=== PATIENT | female | born 1950 | race Caucasian/White ===

== ENCOUNTER → 2019-06-15 | Outpatient (CLI) | payer MEDICARE ==
--- NOTE | 2019-06-15 15:26 | MR ---
EXAMINATION TYPE: MR shoulder RT wo con DATE OF EXAM: 06/15/2019 COMPARISON: Ultrasound 06/01/2019 HISTORY: Rt shoulder pain x 2 mos, no trauma TECHNIQUE: Multiplanar, multisequence imaging of the right shoulder is performed without contrast. FINDINGS: Rotator Cuff: Rotator cuff shows some abnormal increased signal at the insertion of the infraspinatus tendon anteriorly suggestive of a partial thickness tear. Increased signal within the tendon is comp atible with tendinosis. Acromioclavicular Joint: Arthropathy causes some mass effect on the musculotendinous junction of supr aspinatus. Glenohumeral Joint: Intact Labrum: Superior labrum shows an irregular appearance, some abnormal increased internal signal. There is some fraying suspected. Biceps Tendon: The long head of biceps is in normal location within bicipital groove. Bone marrow signal: 9 mm T2 hyperintensity in the humeral head shows non-aggressive appearance and th ere may be a geode or intraosseous ganglion just deep to the bicipital groove, there are pseudocysts in the humeral head. Other: No additional significant abnormality is appreciated. IMPRESSION: Partial tear rotator cuff, there is likely fraying of the superior labrum.
== END | disposition home or self-care (01) ==
LOC: RADMRIMAIN 10:25
PROVIDERS: ATTEND Orthopaedic Surgery
DX: M25.511 Pain in right shoulder (principal)

== ENCOUNTER → 2019-07-15 | Outpatient (CLI) | payer MEDICARE ==
[2019-07-15 09:49] LABS: Basophils # (A) 0.1 k/uL (0-0.2); Basophils % (A) 1 %; Eosinophils # (A) 0.3 k/uL (0-0.7); Eosinophils % (A) 5 %; HCT 41.7 % (34.0-46.0); HGB 13.8 gm/dL (11.4-16.0); Lymphocytes # (A) 2.1 k/uL (1.0-4.8); Lymphocytes % (A) 38 %; MCH 32.4 pg (25.0-35.0); MCHC 33.2 g/dL (31.0-37.0); MCV 97.4 fL (80.0-100.0); Mean Platelet Volume 6.1; Monocytes # (A) 0.3 k/uL (0-1.0); Monocytes % (A) 6 %; Neutrophils # (A) 2.5 k/uL (1.3-7.7); Neutrophils % (A) 46 %; Platelet Count 273 k/uL (150-450); RBC 4.28 m/uL (3.80-5.40); RDW 11.7 % (11.5-15.5); WBC 5.4 k/uL (3.8-10.6)
[2019-07-15 10:06] LABS: Potassium 4.7 mmol/L (3.5-5.1)
== END | disposition home or self-care (01) ==
LOC: LABPAT 08:59
PROVIDERS: ATTEND Orthopaedic Surgery
DX: Z01.812 Encounter for preprocedural laboratory examination (principal); Z01.818 Encounter for other preprocedural examination; M75.41 Impingement syndrome of right shoulder
CPT/HCPCS: 36415; 80051; 85025; 93005

== ENCOUNTER 2019-07-28 08:37 | Day surgery (SDC) | payer MEDICARE ==
[2019-07-27 08:38] VITALS: BMI 32.2
--- NOTE | 2019-07-27 14:04 | HP ---
HISTORY AND PHYSICAL DATE OF SERVICE: 07/28/2019 Brigette Harp is a 69-year-old patient seen with right shoulder pain. We discussed options for treatment. She elected to proceed with arthroscopy. Consent was obtained. PAST MEDICAL HISTORY: Hypertension. PAST SURGICAL HISTORY: Hysterectomy, left knee arthroscopy, left total knee arthroplasty. MEDICATIONS: 1. Metoprolol. 2. Advil. 3. Scotrun. ALLERGIES: None. SOCIAL HISTORY: Denies tobacco use. PHYSICAL EXAMINATION: Evaluation of the right shoulder flexion 140, abduction 90, external rotation 30 with pain and weakness. Tenderness along the anterolateral acromion rotator cuff insertion site. Impingement positive at 90. Drop-arm sign is positive. Distal neurovascular exam is intact. RADIOGRAPHS: Right shoulder type 2 anterior acromion acromioclavicular joint osteoarthritis. Right shoulder MRI rule revealed rotator cuff tear and acromioclavicular joint osteoarthritis. IMPRESSION: 1. Right shoulder impingement with rotator cuff tear. 2. Right shoulder acromioclavicular joint osteoarthritis. 3. Hypertension. PLAN: Right shoulder arthroscopy with subacromial decompression, arthroscopic rotator cuff repair, arthroscopic Nitin procedure and debridement. MMODL / IJN: [id number] /
[~2019-07-28 08:37] MED LIST: DEXAMETHASONE SOD PHOSPHATE 10 MG/ML 1 ML VIAL IV ONE; HYDROmorphone 0.5 MG/0.5 ML SYRINGE IVP PRN; LACTATED RINGERS 1,000 ML IV SCH; MIDAZOLAM 2 MG/2 ML VIAL IV PRN; ONDANSETRON 4 MG/2 ML VIAL IVP ONE
[2019-07-28 09:22] LABS: Glucose,Whole Blood 68 mg/dL (75-99)
[2019-07-28] MEDS ORDERED: fentaNYL (PF) 50 MCG/ML 2 ML AMP IV ONE (09:26)
[2019-07-28] MEDS ORDERED: LIDOCAINE 1% 20 ML VIAL (10MG/ML) FOR IV START INTRADERMA ONE (09:29)
--- NOTE | 2019-07-28 09:50 | P.ANPRN ---
Procedure Note - Anesthesia - Nerve Block Performed Right Interscalene Single Time Out Performed: Yes Date of Procedure: 07/28/19 Procedure Start Time: : Procedure Stop Time: :32 Location of Patient: PreOp Indication: Acute Post-Operative Pain, Requested by Surgeon Specifically requested for management of pain by DrVlad: Sudeep Aparicio Sedation Type: Sedate with meaningful contact maintained Preparation: Sterile Prep Position: Supine Catheter: None Needle Types: Pajunk Needle Gauge: 21 Ultrasound used to visualize needle placement: Yes Ultrasound used to observe medication spread: Yes Injectate: 0.5% Ropivacaine (see comment for volume) (20 cc + decadron 4 mg) Blood Aspirated: No Pain Paresthesia on Injection Noted: No Resistance on Injection: Normal Image Stored and Saved: Yes Events: Uneventful and Well Tolerated
[2019-07-28] MEDS ORDERED: ROPIVACAINE 5 MG/ML 30 ML VIAL ONE (10:01)
[2019-07-28] MEDS ORDERED: LIDOCAINE 1% INJ 10MG/ML (20 ML MDV) ONE (10:01)
[2019-07-28] MEDS ORDERED: DEXAMETHASONE SOD PHOSPHATE 4 MG/ML 1 ML VIAL ONE (10:01)
[2019-07-28] MEDS ORDERED: MIDAZOLAM 2 MG/2 ML VIAL ONE (10:01)
[2019-07-28] MEDS ORDERED: PROPOFOL 10 MG/ML 20 ML VIAL IV ONE (10:01)
[2019-07-28] MEDS ORDERED: SUCCINYLCHOLINE CHLORIDE 100 MG/5 ML SYR IV ONE (10:01)
[2019-07-28] MEDS ORDERED: LACTATED RINGERS 1,000 ML IV ONE (11:13)
[2019-07-28 11:33] VITALS: TEMP 97.2
--- NOTE | 2019-07-28 11:34 | P.OP ---
Date of Procedure: 07/28/19 Preoperative Diagnosis: Right shoulder impingement Postoperative Diagnosis: 1. Right shoulder rotator cuff tear 2. Right shoulder impingement 3. Right shoulder acromioclavicular joint osteoarthritis 4. Right shoulder partial long head biceps tendon tear Procedure(s) Performed: 1. Right shoulder arthroscopic rotator cuff repair 2. Right shoulder arthroscopic subacromial decompression 3. Right shoulder arthroscopic Nitin procedure 4. Right shoulder arthroscopic biceps tenotomy Implants: 15.5 Arthrex a lock anchor Anesthesia: GETA, regional (interscalene block) Surgeon: Sudeep Aparicio Hand Heel Seat Fitter #1: Dwayne Rodney Estimated Blood Loss (ml): 12 Pathology: none sent Condition: stable Disposition: PACU Indications for Procedure: 69-year-old patient seen with progressive right shoulder pain. After treatment options were discussed, she elected to proceed with arthroscopy. Operative Findings: see description of procedure Description of Procedure: Patient underwent an interscalene block by department of anesthesia for postoperative pain management. The patient was then taken to the operative suite. The patient underwent a general anesthetic by the department of anesthesia. The patient was placed into a lateral position and secured. There was appropriate padding of the bony prominence. Right shoulder was then prepped and draped in normal sterile orthopedic fashion. We placed the extremity in 10 pounds of longitudinal traction. A posterior incision was now made for a posterior working portal site. The trocar and cannula were inserted into the glenohumeral joint. Arthroscopy was initiated. Spinal needle was now inserted anteriorly, to ascertain the anterior working portal site. An incision was now made in that area, a trocar was inserted followed by a probe. There was hyperemia and partial tearing long head biceps tendon. The labrum was intact. There were grade 2 chondromalacia changes of the humeral head and glenoid fossa. There were no osteochondral tears present. I performed arthroscopic biceps tenotomy. The residual labrum was stable. Instruments now removed from glenohumeral joint. Utilizing the posterior working portal site, the trocar and cannula were inserted into the subacromial space. Arthroscopy initiated. I made an incision 2 fingerbreadths lateral to the acromion. I introduced my trocar followed by my A rthroCare ablator. I now began ablating thick subacromial bursal tissue, which exposed the undersurface of the anterior acromion. There was diminished subacromial space. There was a very prominent anterior acromion. A motorized bur was introduced and a subacromial decompression was performed. I also excised some osteophytes off the inferior aspect of the distal clavicle. The AC joint was visualized and noted to be fairly arthritic. The motorized bur was introduced in the anterior portal site and a Nitin procedure was performed without difficulty, decompressing the AC joint nicely. I turned my attention to the rotator cuff. There was a 1-1.5 cm rotator cuff tear. I debrided the margins getting down to stable tendon tissue. I introduced my motorized bur and abraded the footprint area, getting some petechial bleeding. I passed 2 everted mattress sutures through good bites of rotator cuff tendon with the assistance of Sg STUART. I now punched a wall in the area of the footprint for insertion of her anchor. I now chose a 5.5 Arthrex swivel lock anchor. The suture limbs were passed through the eyelet. I introduced the eyelet into the pre-punch hole. Sg STUART tension the sutures and the aman the anchor. All residual suture limbs were now clipped. We had good compression of the tendon along the entire footprint. I injected 1 mL Renyte intra-articular. Instruments now removed from the portal sites. All portal sites were approximated with nylon suture. Sterile dressings were applied followed by a shoulder immobilizer. Dwayne STUART assisted in this complex case. The patient was awakened, transferred to a bed, and taken to recovery in stable condition.
[2019-07-28 11:58] VITALS: RESP 16
[2019-07-28 12:57] VITALS: BP 143/94; PULSE 90
== END 2019-07-28 13:10 | disposition home or self-care (01) ==
LOC: OR 08:37
PROVIDERS: ATTEND Orthopaedic Surgery
DX: M75.41 Impingement syndrome of right shoulder (principal); M75.101 Unspecified rotator cuff tear or rupture of right shoulder, not specified as traumatic; M19.011 Primary osteoarthritis, right shoulder; M25.811 Other specified joint disorders, right shoulder; I10 Essential (primary) hypertension; Z79.1 Long term (current) use of non-steroidal anti-inflammatories (NSAID); Z79.899 Other long term (current) drug therapy; Z96.652 Presence of left artificial knee joint; J45.909 Unspecified asthma, uncomplicated
CPT/HCPCS: 64415; 76942; 29827; 29828; 29826; 29824; C1713; Q4212; J2250; J1100 ×2; J0690; J2405; J2001; J3010; J2795; J0330; J2704

== ENCOUNTER → 2021-01-18 | Outpatient (CLI) | payer MEDICARE ==
--- NOTE | 2021-01-18 13:35 | US ---
EXAMINATION TYPE: US venous doppler duplex LE RT DATE OF EXAM: 01/18/2021 1:10 PM COMPARISON: NONE CLINICAL HISTORY: R22.41 Localized swelling, mass and lump, right lo. Pain at varicose veins right m edial calf. SIDE PERFORMED: Right TECHNIQUE: The lower extremity deep venous system is examined utilizing real time linear array sonog abby with graded compression, doppler sonography and color-flow sonography. VESSELS IMAGED: Common Femoral Vein Deep Femoral Vein Greater Saphenous Vein * (GSV) Femoral Vein Popliteal Vein Small Saphenous Vein * Proximal Calf Veins (* superficial vessels) Right Leg: Thick blood noted within GSV at Groin and below knee at pain as Rouleaux Effect is noted here, but superficial veins compress. Right leg is negative for DVT. IMPRESSION: 1. Right lower extremity ultrasound negative for deep venous thrombosis. 2. 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
== END | disposition home or self-care (01) ==
LOC: RADUSWWP 12:43
PROVIDERS: ATTEND Family Medicine
DX: R22.41 Localized swelling, mass and lump, right lower limb (principal)

== ENCOUNTER → 2021-04-25 | Outpatient (CLI) | payer MEDICARE ==
--- NOTE | 2021-04-30 09:03 | MM ---
Reason for exam: additional evaluation requested from prior study. Last mammogram was performed 3 years and 1 month ago. History: Patient history of other cancer. Benign excisional biopsy of the right breast. Took estrogen for 4 years. Physical Findings: Nurse did not find any significant physical abnormalities on exam. MG 3D Diag Mammo W/Cad QUIN Bilateral CC and MLO view(s) were taken. XCCL view(s) were taken of the left breast. Prior study comparison: April 23, 2018, left breast ultrasound, performed at [facility]. April 03, 2018, mammogram, performed at [facility]. September 29, 2015, mammogram, performed at [facility]. There are scattered fibroglandular densities. Focal asymmetry upper outer right breast 10cm from nipple. This finding is changed when compared with previous exams. These results were verbally communicated with the patient and result sheet given to the patient on 04/25/21. ASSESSMENT: Incomplete: need additional imaging evaluation, BI-RAD 0 RECOMMENDATION: Special view mammogram and ultrasound of the right breast. [facility] will attempt to contact patient to return for supplemental views and ultrasound.
== END | disposition home or self-care (01) ==
LOC: RADMAMWWP 09:39
PROVIDERS: ATTEND Family Medicine
DX: R92.8 Other abnormal and inconclusive findings on diagnostic imaging of breast (principal)
CPT/HCPCS: 77066; G0279; 77062

== ENCOUNTER → 2021-05-09 | Outpatient (CLI) | payer MEDICARE ==
--- NOTE | 2021-05-10 10:44 | MM ---
Reason for exam: additional evaluation requested from abnormal screening. Last mammogram was performed less than 1 month ago. History: Patient is postmenopausal and has history of other cancer at age 71. Benign excisional biopsy of the right breast. Took estrogen for 4 years. Physical Findings: Nurse did not find any significant physical abnormalities on exam. MG 3D Follow Up No Charge RT Spot compression CC, spot compression MLO, and ML view(s) were taken of the right breast. Prior study comparison: April 25, 2021, bilateral MG 3d diag mammo w/cad QUIN. April 03, 2018, mammogram, performed at [facility]. Density upper outer quadrant zone C persists 12cm from nipple. These results were verbally communicated with the patient and result sheet given to the patient on 05/09/21. ASSESSMENT: Incomplete: need additional imaging evaluation, BI-RAD 0 RECOMMENDATION: Ultrasound of the right breast.
--- NOTE | 2021-05-10 10:46 | USB ---
Reason for exam: additional evaluation requested from abnormal screening. History: Patient is postmenopausal and has history of other cancer at age 71. Benign excisional biopsy of the right breast. Took estrogen for 4 years. US Breast Workup Limited RT Right limited breast ultrasound including focal area of concern, retroareolar and axilla demonstrates a 1.9 x 1.4cm irregular, hypoechoic lesion at 9 o'clock. These results were verbally communicated with the patient and result sheet given to the patient on 05/09/21. ASSESSMENT: Suspicious, BI-RAD 4 RECOMMENDATION: Ultrasound core biopsy of the right breast. Called Dr. Vasquez's office with mammographic findings and has scheduled an appointment for the patient for 05/10/21 at 12:[address] Beltran. Biopsy scheduled for 05/23/21 at 10:30. PRELIMINARY REPORT CALLED AND FAXED TO DR. BELTRAN ON 05/10/21.
== END | disposition home or self-care (01) ==
LOC: RADMAMWWP 13:28
PROVIDERS: ATTEND Family Medicine
DX: R92.8 Other abnormal and inconclusive findings on diagnostic imaging of breast (principal)

== ENCOUNTER → 2021-05-10 | Outpatient (CLI) | payer MEDICARE ==
[2021-05-10 12:57] VITALS: BP 139/88; PULSE 77; RESP 16; TEMP 98.3
--- NOTE | 2021-05-10 13:10 | P.GSHP ---
History of Present Illness H&P Date: 05/10/21 Chief Complaint: abnormal right breast ultrasound and mammogram Ashanti is a 71 -year-old white female who presents with an abnormal right breast mammogram. She had a bilateral mammogram performed on which revealed an area of asymmetry in the right breast in the upper outer quadrant region. She subsequently underwent a right breast ultrasound which confirmed the area of concern to be a 1.9 x 1.4 cm irregular lesion at 9:00. She also underwent a right breast diagnostic mammogram. No lesions of concern were noted in the left breast. She does not feel anything of concern in either breast. In the remote past approximately 30 years ago she had undergone a right breast biopsy needle localization excisional biopsy which was benign. 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 A PET scan was performed which revealed that the area of concern revealed an enhancing mass in the right posterior vulva which was approximately 3.4 x 2.7 cm in size. She is seeing Dr. Wei in [place] regarding this. She has a meeting with them today at approximately 1:45. She had seen Dr. Riojas he was out of [facility] in [place]. She has opted to follow through in [place] rather than with him. She does not have any history of any pain, trauma, or infection in either breast. Family history: brother: hairy cell leukemia, stage 4 lung cancer not a smoker sister: colon polyps maternal aunt: pancreatic cnacer paternal cousin: kidney cancer Hormonal History: menarche: 15 , breast fed: no, age at first : 22 menopause: hysterectomy in 1988 at about 39, took ovaries BCP: used for about 2 years hormones: premarin patches 5 years Surgical history: hysterectomy and BSO not for cancer/ endometriosis total left knee right shoulder rotater cuff surgery D&C's Medical History: vulvar cancer HTN pain in back/arthritis takes tramadole Social history: Smoke: none alcohol: occasional drugs: none - Constitutional Constitutional: Reports night sweats, Denies chills, Denies fever - EENT Eyes: denies blurred vision, denies pain Ears: bilateral: decreased hearing, deny: tinnitus Ears, nose, mouth and throat: Denies headache, Denies sore throat - Breasts Breasts: bilateral: as per HPI - Cardiovascular Cardiovascular: Denies chest pain, Denies shortness of breath - Respiratory Respiratory: Denies cough, Denies 7 - Gastrointestinal Gastrointestinal: Denies abdominal pain, Denies diarrhea, Denies nausea, Denies vomiting - Genitourinary (Female) Genitourinary: Reports as per HPI - Menstruation Comment: vulvar cancer Menstruation: Reports post hysterectomy - Musculoskeletal Comment: back pain - Integumentary Integumentary: Denies pruritus, Denies rash - Neurological Neurological: Denies numbness, Denies weakness - Psychiatric Psychiatric: Reports anxiety, Reports depression - Endocrine Endocrine: Denies fatigue, Denies weight change - Hematologic/Lymphatic Comment: none - Allergic/Immunologic Allergic/Immunologic: Reports seasonal allergies Medications and Allergies Home Medications Medication Instructions Recorded Confirmed Type Ibuprofen [Motrin] 200 - 400 mg PO Q6HR PRN 05/17/14 05/10/21 History Metoprolol Succinate [Toprol XL] 50 mg PO HS 05/17/14 05/10/21 History Acetaminophen Tab [Tylenol Tab] 1,000 mg PO Q6HR PRN 07/27/19 05/10/21 History Albuterol Inhaler (Mhu) [Ventolin 1 - 2 puff INHALATION RT-Q6H PRN 07/27/19 05/10/21 History Hfa Inhaler] Multivit-Min/Iron/Folic/Lutein 1 each PO DAILY 07/27/19 05/10/21 History [Centrum Silver Women Tablet] traMADol HCL [Ultram] 50 mg PO BID 05/10/21 05/10/21 History Allergies Allergy/AdvReac Type Severity Reaction Status Date / Time No Known Allergies Allergy Verified 07/28/19 09:07 Surgical - Exam BMI 31.6 - General well developed, well nourished, no distress - Eyes normal ocular movement - ENT no hearing loss, no congestion - Neck trachea midline - Respiratory normal respiratory effort, clear to auscultation - Cardiovascular Rhythm: regular Heart Sounds: normal: S1, S2 - Abdomen Abdomen: soft, non tender, no guarding, no rigid, no rebound - Integumentary normal turgor - Neurologic no disoriented, no combative - Musculoskeletal normal gait, normal posture - Psychiatric oriented to time, oriented to person, oriented to place, speech is normal, memory intact breast Exam: BRA: 42B inspection: grade 2/3 ptosois, well-healed scar right breast from prior biopsy palpation: right breast: Multi-positional exam no dominant masses or nodules of concern Right axilla: No adenopathy of concern Left breast: Multi-positional exam fibrocystic changes no dominant masses or nodules of concern Left axilla: No adenopathy of concern Results Mammogram and ultrasound reviewed with Dr. Meneses Assessment and Plan Assessment: Impression: 1. Abnormal right breast mammogram and ultrasound 2. Recent diagnosis of vulvar cancer 3. Hypertension 4. Anxiety/depression Plan: 1. Treatment of vulvar disease as per recommendation in [place] 2. Ultrasound core biopsy right breast Cc: Dr. Vasquez
== END | disposition home or self-care (01) ==
LOC: WWCWWP 11:49
PROVIDERS: ATTEND Surgery
DX: Z53.9 Procedure and treatment not carried out, unspecified reason (principal)

== ENCOUNTER → 2021-05-23 | Day surgery (SDC) | payer MEDICARE ==
[2021-05-23 09:47] VITALS: RESP 16
[2021-05-23 11:27] VITALS: BP 116/79; PULSE 57; TEMP 98.2
--- NOTE | 2021-05-24 10:16 | USB ---
EXAMINATION TYPE: US biopsy breast VAD RT DATE OF EXAM: 05/23/2021 CLINICAL HISTORY: R92.8 ABN MAMMO. TECHNIQUE: Ultrasound guided vaccuum assisted core biopsy of right breast. COMPARISON: 05/09/2021 FINDINGS: The ultrasound guided core biopsy procedure was explained to the patient. The risks, benef its, alternatives were discussed. An informed consent was then obtained. Timeout was performed. The patient was placed in supine positioning for imaging and for the procedure. The overlying skin w as prepped with betadine and sterilely draped in usual sterile fashion. Lidocaine 1% was used as ane sthetic into the skin and deeper breast tissue up to area of concern in the breast. A small skin zoe k was made with surgical scalpel. Under ultrasound guidance, a 12-gauge vacuum assisted biopsy device was used to obtain 5 core samples . A biopsy clip was left in lesion. Ribbon clip was placed. Good hemostasis was obtained with direct pressure. Discharge instructions were discussed with the concetta jon. The patient will follow up with the referring physician for results. Postprocedure mammogram: The patient was transferred to mammography for physician ordered post proced ure mammogram for clip placement verification. The clip is in the expected region of the biopsy. The patient tolerated the procedure well without any immediate complication. The patient was dischar ged to home in stable condition. IMPRESSION: 1. Successful ultrasound guided biopsy right breast. Recommendations: 1. Recommendations are pending pathology results.
== END ==
LOC: RADUSWWP 09:16
PROVIDERS: ATTEND Surgery
DX: C50.911 Malignant neoplasm of unspecified site of right female breast (principal)
CPT/HCPCS: 88305; 88342; 88341; 77065; 19083; A4648; J2001

== ENCOUNTER → 2021-06-01 | Outpatient (CLI) | payer MEDICARE ==
[2021-06-01 13:52] VITALS: BP 136/93; PULSE 77; RESP 18
--- NOTE | 2021-06-01 14:16 | P.PN ---
Subjective Progress Note Date: 06/01/21 Principal diagnosis: vulvar cancer; ? stage II; right breast invasive lobular carcinoma Ashanti is a 71-year-old white female status post ultrasound-guided core biopsy of the right breast on tenderness 1321. Pathology revealed invasive pleomorphic lobular carcinoma. The lesion was ER positive SC negative HER-2 negative G2. The size is approximately 1.9 cm. There is no clinical evidence of dominique or metastatic disease. This would be a stage I A lesion. If the resection reveals it to be larger than 2 cm then the stage would be IIA. Of importance is the fact that the patient is presently being treated for vulvar carcinoma. She is undergoing radiation therapy and is scheduled to start chemotherapy yuhaaviatam-based to potentiate the radiation therapy. This is going to be completed by July 09. I have called Dr. Virgen her medical oncologist secondary to the fact that the patient has a second primary. He believes that the and carefully follow the lesion in the breast. Objective - Vital Signs Vital signs: Vital Signs Temp Pulse 77 06/01/21 13:49 Resp 18 06/01/21 13:49 BP 136/93 06/01/21 13:49 Pulse Ox 100 06/01/21 13:49 Intake & Output 05/31/21 06/01/21 06/01/21 18:59 06:59 18:59 Weight 78.471 kg - Constitutional General appearance: Present: cooperative - EENT Eyes: Present: EOMI ENT: Present: hearing grossly normal - Neck Neck: Present: normal ROM - Respiratory Respiratory: bilateral: CTA - Cardiovascular Rhythm: regular Heart sounds: normal: S1, S2 - Gastrointestinal General gastrointestinal: Present: soft - Integumentary Integumentary: Present: normal turgor - Musculoskeletal Musculoskeletal: Present: gait normal - Psychiatric Psychiatric: Present: A&O x's 3, appropriate affect, intact judgment & insight - Additional findings Additional findings: Biopsy site right breast clean and dry no evidence of infection or hematoma Assessment and Plan Assessment: Impression: 1. Vulvar carcinoma presently being treated with radiation and patient is scheduled to start chemotherapy next week 2. Invasive lobular right breast carcinoma Plan: 1. I discussed the case with Dr. Virgen from medical oncology. He feels at this time it is important that the patient completed treatment for the vulvar carcinoma. She is scheduled to start a yuhaaviatam-based chemotherapy and he feels that we can monitor the lesion in the right breast at this time with ultrasound done every 3 weeks. Additionally he is recommended bilateral breast MRI 2. We will schedule right breast surgery for as soon as possible after completion of the treatment for the vulvar carcinoma. 3. presentation of case at tumor board 4. breast ultrasound in 3 weeks and follow up here 5. continue appointments with chemo and radiation oncology CC: Dr. Vasquez
== END | disposition home or self-care (01) ==
LOC: WWCWWP 13:32
PROVIDERS: ATTEND Surgery
DX: Z53.9 Procedure and treatment not carried out, unspecified reason (principal)

== ENCOUNTER → 2021-06-22 | Outpatient (CLI) | payer MEDICARE ==
--- NOTE | 2021-06-22 11:37 | USB ---
EXAMINATION TYPE: US breast limited RT DATE OF EXAM: 06/22/2021 COMPARISON: 05/23/2021, 05/09/2021, 04/25/2021 CLINICAL HISTORY: C50.411 RT BREAST CA. Findings: Right breast ultrasound was performed from 8-10 o'clock. The previously noted lesion is not seen on t his examination. IMPRESSION: The previously seen lesion is not seen on this examination. Diagnostic right mammogram is recommended . BI-RADS 0, incomplete.
--- NOTE | 2021-06-22 14:26 | MM ---
Reason for exam: additional evaluation requested from abnormal screening. Last mammogram was performed 1 month ago. History: Patient is postmenopausal, has history of breast cancer at age 71, and has history of other cancer at age 71. Malignant US biopsy breast VAD RT of the right breast, May 23, 2021. Benign excisional biopsy of the right breast. Took estrogen for 4 years. MG 3D Diag Mammo W/Cad RT CC, MLO, and XCCL view(s) were taken of the right breast. Prior study comparison: May 23, 2021, right breast MG diagnostic mammo RT wo CAD. May 09, 2021, right breast MG 3d follow up no charge RT. April 03, 2018, mammogram, performed at [facility]. There are scattered fibroglandular densities. The right upper outer quadrant posterior mass is decreased now measures 2.5 x 1.3 x 0.6cm, previously 3.1 x 1.5 x 0.9cm. Biopsy clip is present. These results were verbally communicated with the patient and result sheet given to the patient on 06/22/21. ASSESSMENT: Known biopsy proven malignancy, BI-RAD 6 RECOMMENDATION: Clinical management of the right breast. Manage patient on a clinical basis. MELISSAD
== END | disposition home or self-care (01) ==
LOC: RADUSWWP 09:12
PROVIDERS: ATTEND Surgery
DX: C50.411 Malignant neoplasm of upper-outer quadrant of right female breast (principal)
CPT/HCPCS: 77065; 76642; G0279; 77061

== ENCOUNTER → 2021-06-27 | Outpatient (CLI) | payer MEDICARE ==
--- NOTE | 2021-06-27 10:23 | US ---
EXAMINATION TYPE: US venous doppler duplex LE RT DATE OF EXAM: 06/27/2021 9:49 AM COMPARISON: 01/18/2021 CLINICAL HISTORY: 71-year-old female R22.41 Localized swelling, mass and lump, RLE. Skin redness and pain along the Right Greater Saphenous Vein course for approximately 15 cm from above knee to mid jeanmarie f; symptoms x 1 day per patient; on radiation for ovarian and breast CA. SIDE PERFORMED: Right TECHNIQUE: The lower extremity deep venous system is examined utilizing real time linear array sonog abby with graded compression, doppler sonography and color-flow sonography. FINDINGS: VESSELS IMAGED: Common Femoral Vein Deep Femoral Vein Greater Saphenous Vein * Femoral Vein Popliteal Vein Small Saphenous Vein * Proximal Calf Veins (* superficial vessels) Right Leg: Negative for DVT; however, Rouleaux Effect is noted throughout right deep venous system. Right Greater Saphenous Vein Superficial thrombophlebitis is noted from above knee to mid calf for ap proximately 15cm long, as internal echoes are noted and non compressibility of vein is present. Tech findings called to Dr Ricardo's Office at exam's end. JJ IMPRESSION: 1. No evidence for DVT within the right lower extremity imaged from the groin to the upper calf. Styles michelle, there is Rouleaux effect/slow flow noted throughout. 2. However, the exam is positive for SVT involving a 15 cm long segment of the GSV extending from abo ve the knee to the mid calf.
== END | disposition home or self-care (01) ==
LOC: RADUSWWP 09:05
PROVIDERS: ATTEND Radiology Radiation Oncology
DX: C51.9 Malignant neoplasm of vulva, unspecified (principal); R22.41 Localized swelling, mass and lump, right lower limb

== ENCOUNTER → 2021-06-29 | Outpatient (CLI) | payer MEDICARE ==
[2021-06-29 12:35] VITALS: BP 126/85; PULSE 94; RESP 18; TEMP 97.7
--- NOTE | 2021-06-29 12:52 | P.PN ---
Progress Note - Text Progress Note Date: 06/29/21 The patient has come in today for results of the MRI of her breast. These were done at [facility] and we do not have the films or the results at this time. It has not been read yet. The patient did have a very depressed mammogram and ultrasound performed on [id number]. This revealed that the biopsy- proven cancer had decreased in size. It now measures 2.5 x 1.3 x 0.6 and previously measured 3.1 x 1.5 x 0.9 cm. The patient is presently receiving chemotherapy for a vulvar cancer. This appears to have some affect on the breast cancer as well. The patient will follow up here in two weeks. The patient is here with her sister who lives in [place] and will fly back for the patient's surgery. The patient wishes to wait for her surgery until mid August and it is presently scheduled for August 28. We have discussed moving the surgery sooner that the patient and her family would like her to stay at August 28.
== END | disposition home or self-care (01) ==
LOC: WWCWWP 12:20
PROVIDERS: ATTEND Surgery
DX: Z53.9 Procedure and treatment not carried out, unspecified reason (principal)

== ENCOUNTER → 2021-07-13 | Outpatient (CLI) | payer MEDICARE ==
--- NOTE | 2021-07-16 08:50 | PE ---
EXAMINATION TYPE: PET CT fusion skull to thigh DATE OF EXAM: 07/13/2021 COMPARISON: Outside PET/CT May 07, 2021 HISTORY: Biopsy-proven malignancy right breast in May. Recent abnormal bilateral breast MRI. TECHNIQUE: Following the intravenous administration of 8.49 mCi of F-18 FDG, whole body images are p erformed from the skull base to the midthigh. Images are reviewed on the computer in the coronal, ax ial, and sagittal planes. Reconstructed rotating images are created on independent workstation and r eviewed on the computer. A localization and attenuation correction CT is performed in conjunction w ith the PET scan. Blood glucose level was 103. SCAN: Initial Scan FINDINGS: SKULL BASE AND NECK: No areas of abnormal hypermetabolic uptake. CHEST, MEDIASTINUM, AND HILAR REGION: No areas of abnormal hypermetabolic uptake with particular atte ntion to bilateral breast and axillary regions. ABDOMEN AND PELVIS: Normal excretion. Nonspecific bowel uptake including near level of hepatic flexur e. Abnormal hypermetabolic uptake in the rectum and axial image 224, max SUV is 6.3. Abnormal hyperme tabolic uptake sigmoid colon left pelvis axial image 207 , max SUV is 5.63. Direct correlation advise d. No additional areas of abnormal hypermetabolic uptake. OSSEOUS STRUCTURES: Abnormal hypermetabolic uptake anterior right lower sixth and seventh ribs likely reflects healing fractures. One likely corresponds to recent breast MRI abnormal area of enhancement . No additional areas of abnormal hypermetabolic uptake. OTHER CT: Ascending aortic aneurysm up to 4.1 cm. A few distal colonic diverticula. Uterus surgically absent. IMPRESSION: 1. Known right breast neoplasm not well seen on PET/CT as is ametabolic. No hypermetabolic suspicious areas on PET/CT in either breast. Advise appropriate treatment and management of recent workup and M RI findings. 2. Nonspecific bowel uptake including rectum and sigmoid colon left pelvis, possibly follow-up does n ot been performed last 2 years to exclude colonic neoplasm advised. 3. Area of concern anterior right lower rib on MRI felt to reflect adjacent subacute or healing fract ures. No hypermetabolic osseous metastatic disease.
== END | disposition home or self-care (01) ==
LOC: RADPETMAIN 14:26
PROVIDERS: ATTEND Surgery
DX: C50.411 Malignant neoplasm of upper-outer quadrant of right female breast (principal)
CPT/HCPCS: 78815; A9552

== ENCOUNTER → 2021-07-23 | Outpatient (CLI) | payer MEDICARE ==
--- NOTE | 2021-07-23 10:10 | USB ---
Reason for exam: clinical finding. History: Patient is postmenopausal, has history of breast cancer at age 71, and has history of other cancer at age 71. Malignant US biopsy breast VAD RT of the right breast, May 23, 2021. Benign excisional biopsy of the right breast. Took estrogen for 4 years. Physical Findings: Nurse Summary: right breast 9 o'clock palpable 1 x 1.5cm, non-movable (nurse ts). US Breast LT Left complete breast ultrasound includes all four quadrants, the retroareolar region and axilla. Finding demonstrates a 0.4 x 0.3 x 0.3cm oval, hypoechoic lesion too small to characterize at 2 o'clock, 7cm from nipple, may correlate with MRI and a 0.7 x 0.5 x 1.0cm oval, solid node at 2 o'clock. These results were verbally communicated with the patient and result sheet given to the patient on 07/23/21. ASSESSMENT: Suspicious, BI-RAD 4 RECOMMENDATION: Ultrasound core biopsy of the left breast. Called office with mammographic findings and has scheduled an appointment for the patient for 07/27/21 at 9:[address] Beltran. Biopsy scheduled for 08/22/21 at 10:30. PRELIMINARY REPORT CALLED AND FAXED TO DR. BELTRAN ON 07/23/21.
== END | disposition home or self-care (01) ==
LOC: RADUSWWP 08:43
PROVIDERS: ATTEND Surgery
DX: Z08 Encounter for follow-up examination after completed treatment for malignant neoplasm (principal); Z85.3 Personal history of malignant neoplasm of breast

== ENCOUNTER → 2021-07-27 | Outpatient (CLI) | payer MEDICARE ==
[2021-07-27 09:38] VITALS: BP 114/71; PULSE 76; RESP 16; TEMP 97.9
--- NOTE | 2021-07-27 13:21 | P.PN ---
Subjective Progress Note Date: 07/27/21 Principal diagnosis: Impression invasive ductal carcinoma, questionable lesion in the left breast Ashanti is a 71 -year-old white female who presented with an abnormal right breast mammogram. She had a bilateral mammogram performed on which revealed an area of asymmetry in the right breast in the upper outer quadrant region. She subsequently underwent a right breast ultrasound which confirmed the area of concern to be a 1.9 x 1.4 cm irregular lesion at 9:00. She also underwent a right breast diagnostic mammogram. No lesions of concern were noted in the left breast. She does not feel anything of concern in either breast. In the remote past approximately 30 years ago she had undergone a right breast biopsy needle localization excisional biopsy which was benign. 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 A PET scan was performed which revealed that the area of concern revealed an enhancing mass in the right posterior vulva which was approximately 3.4 x 2.7 cm in size. She is seeing in [place]. She has opted to follow through in [place] rather than with him. She does not have any history of any pain, trauma, or infection in either breast. She was seen by Dr. Virgen from medical oncology and received chemotherapy related to the vulvar cancer. He felt that the chemotherapy would also be effective against the breast lesion. Her case was presented at tumor board on . It was recommended she undergo breast MRI. It was felt that approximately 3 weeks after she finished chemotherapy for the vulvar cancer she would be a candidate for breast surgery. The breast MRI was performed on [id number]. This revealed the lesion in the right breast which was approximately 3 cm in size and a suspicious 7 mm lesion in the left breast. Ultrasound of the left breast was performed to try to identify the lesion at the 2 o'clock position which was not well seen. A lesion was identified which was felt to be consistent with a lymph node which was felt to be non-worrisome as per Dr. Salinas. Additionally question of a anterior lower right enhancing lesion in the rib cage was identified. A PET scan [place] recomm [place] [id number]. This revealed no hypermetabolic suspicious areas on the PET/CT in either breast. The area of concern in the anterior right rib was felt to reflect a healing fracture. No evidence of osseous metastatic disease was identified. Patient with some questionable bowel uptake and recommendation for exclusion of colonic neoplasia made. Genetic testing was performed which was negative. Family history: brother: hairy cell leukemia, stage 4 lung cancer not a smoker sister: colon polyps maternal aunt: pancreatic cnacer paternal cousin: kidney cancer Hormonal History: menarche: 15 , breast fed: no, age at first : 22 menopause: hysterectomy in 1988 at about 39, took ovaries BCP: used for about 2 years hormones: premarin patches 5 years Surgical history: hysterectomy and BSO not for cancer/ endometriosis total left knee right shoulder rotater cuff surgery D&C's Medical History: vulvar cancer HTN pain in back/arthritis takes tramadole Social history: Smoke: none alcohol: occasional drugs: none - Constitutional Constitutional: Reports night sweats, Denies chills, Denies fever - EENT Eyes: denies blurred vision, denies pain Ears: bilateral: decreased hearing, deny: tinnitus Ears, nose, mouth and throat: Denies headache, Denies sore throat - Breasts Breasts: bilateral: as per HPI - Cardiovascular Cardiovascular: Denies chest pain, Denies shortness of breath - Respiratory Respiratory: Denies cough - Gastrointestinal Gastrointestinal: Denies abdominal pain, Denies diarrhea, Denies nausea, Denies vomiting - Genitourinary (Female) Genitourinary: Reports as per HPI - Menstruation Comment: vulvar cancer Menstruation: Reports post hysterectomy - Musculoskeletal Comment: back pain - Integumentary Integumentary: Denies pruritus, Denies rash - Neurological Neurological: Denies numbness, Denies weakness - Psychiatric Psychiatric: Reports anxiety, Reports depression - Endocrine Endocrine: Denies fatigue, Denies weight change - Hematologic/Lymphatic Comment: none - Allergic/Immunologic Allergic/Immunologic: Reports seasonal allergies Objective - Vital Signs Vital signs: Vital Signs Temp 97.9 F 07/27/21 09:33 Pulse 76 07/27/21 09:33 Resp 16 07/27/21 09:33 BP 114/71 07/27/21 09:33 Pulse Ox Intake & Output 07/26/21 07/27/21 07/27/21 18:59 06:59 18:59 Weight 77.111 kg - Exam BMI 31.1 - Constitutional General appearance: Present: cooperative - EENT Eyes: Present: EOMI ENT: Present: hearing grossly normal - Neck Neck: Present: normal ROM - Respiratory Respiratory: bilateral: CTA - Cardiovascular Heart sounds: normal: S1, S2 - Gastrointestinal General gastrointestinal: Present: soft - Integumentary Integumentary: Present: normal turgor - Musculoskeletal Musculoskeletal: Present: gait normal - Psychiatric Psychiatric: Present: A&O x's 3, appropriate affect, intact judgment & insight - Additional findings Additional findings: Breast examination: Bra: 42B Inspection: Grade 2/3 ptosis bilateral, well-healed scar right breast from prior biopsy Palpation: Right breast: Multiple positional exam no dominant masses or nodules of concern Right axilla: No adenopathy of concern Left breast: Multiple positional exam fibrocystic changes no dominant masses or nodules of concern Left axilla: No adenopathy of concern Assessment and Plan Assessment: Impression: 1. Invasive ductal carcinoma right breast [id number] 2. Questionable lesion left breast 7 mm at 2:00/ultrasound findings most likely consistent [place] [id number] 3. Genetic testing negative 4. No evidence of metastatic disease on PET scan 5. Patient recommended for colonic evaluation at some point 6. Vulvar carcinoma completing chemotherapy. Plan: 1. Results of left breast biopsy to be reviewed 2. Review case with Dr. Virgen 3. Patient wishes right breast lumpectomy, probable mastopexy incision, possible uncal plastic tissue transfer, sentinel node biopsy, possible axillary node dissection 4. Colonic evaluation at some point Surgical options of the right breast were discussed with the patient. These include mastectomy plus or minus reconstruction versus lumpectomy utilizing possible uncal plastic procedure. The patient wishes for a lumpectomy with topical plastic procedure. The patient will also undergo sentinel node biopsy possible axillary node dissection. This concluded but are not limited to bleeding, infection, reaction to the anesthetic. If the margins were positive on the lumpectomy she understands that further surgery may be necessary. Additionally risk of sentinel node biopsy/axillary node dissection include but are not limited to bleeding, infection, reaction to the anesthetic. There is possibility of lymphedema decreased sensation to the inner arm or injury to the thoracodorsal or long thoracic nerve. If methylene blue was necessary to be used she may have some tattooing of the skin and discoloration of the urine. Patient understands and wishes to proceed with surgical resection. CC: Dr. Vasquez
--- NOTE | 2021-07-31 10:35 | USB ---
Reason for exam: clinical finding. History: Patient is postmenopausal, has history of breast cancer at age 71, and has history of other cancer at age 71. Malignant US biopsy breast VAD RT of the right breast, May 23, 2021. Benign excisional biopsy of the right breast. Took estrogen for 4 years. US Breast Limited LT Left limited breast ultrasound including focal area of concern, retroareolar and axilla demonstrates a 0.2 x 0.1 x 0.2cm lesion too small to characterize at 2 o'clock and a 0.4 x 0.3 x 0.3cm cystic lesion at 2 o'clock, felt to correspond to MRI abnormality. These results were verbally communicated with the patient and result sheet given to the patient on 07/27/21. ASSESSMENT: Suspicious, BI-RAD 4 RECOMMENDATION: Ultrasound core biopsy of the left breast. Called office with mammographic findings and has scheduled an appointment for the patient with Dr. Beltran. Biopsy scheduled for 08/22/21. PRELIMINARY REPORT CALLED AND FAXED TO DR. BELTRAN ON 07/27/21.
== END | disposition home or self-care (01) ==
LOC: WWCWWP 09:05
PROVIDERS: ATTEND Surgery
DX: Z85.3 Personal history of malignant neoplasm of breast (principal)

== ENCOUNTER → 2021-08-22 | Day surgery (SDC) | payer MEDICARE ==
[2021-08-22 09:56] VITALS: RESP 16; TEMP 98.3
[2021-08-22 11:42] VITALS: BP 155/84; PULSE 73
--- NOTE | 2021-08-22 12:21 | USB ---
EXAMINATION TYPE: US biopsy breast VAD LT, MG diagnostic mammo LT wo CAD DATE OF EXAM: 08/22/2021 CLINICAL HISTORY: R92.8 ABN MAMMO. Abnormal MRI. History of right-sided breast cancer. TECHNIQUE: Ultrasound guided core biopsy of left breast with clip placement and follow-up two-view mammogram.. COMPARISON: MRI bilateral breast June 22, 2021. FINDINGS: The procedure of ultrasound guided core biopsy was explained to the patient. Benefits, alternatives, and risks were discussed. An informed consent was then obtained. The patient was placed in supine positioning for imaging and for the procedure. Preprocedure ultrasound redemonstrates a round well-defined hypoechoic anechoic roughly 4 mm lesion at 2:[address] in the left breast roughly 5-6 cm distance from nipple. To be corresponding to tiny cysts axial image 19 series 2 which is at the site of MRI concern on postcontrast subtraction image 73. The overlying skin was prepped and draped in usual sterile fashion. Lidocaine is used as anesthetic into the skin and subcutaneous tissue. Lidocaine with epinephrine is used as anesthetic into the deeper tissue up to area of concern in the left breast. Under ultrasound guidance, a vacuum assisted biopsy gun device was used to obtain 4 core samples. Following this, a biopsy clip was left in lesion. The patient tolerated the procedure well without any immediate complication. The patient was kept in the radiology department for short stay after the procedure and then discharged home in stable condition. Postprocedure mammogram shows successful deployment of clip approximately 6 cm distance from nipple with lucency from biopsy. IMPRESSION: Successful, uncomplicated ultrasound guided core biopsy of area of concern in the left breast, full pathology results to follow. Intermediate index of suspicion noted at time of procedure. Pathology Results: High Risk LEFT BREAST, TWO O'CLOCK, ULTRASOUND GUIDED CORE BIOPSY: Proliferative fibrocystic changes including radial scar/complex sclerosing lesion with moderate usual type ductal hyperplasia and cholesterol clefts with foreign body reaction. Recommendation Consider surgical excision of this area. MTDD
== END ==
LOC: RADUSWWP 09:22
PROVIDERS: ATTEND Surgery
DX: N60.92 Unspecified benign mammary dysplasia of left breast (principal)
CPT/HCPCS: 19083; 88305; 77065; A4648; J2001

== ENCOUNTER → 2021-08-30 | Outpatient (CLI) | payer MEDICARE ==
[2021-08-30 12:15] VITALS: BP 135/90; PULSE 75; RESP 18; TEMP 98
--- NOTE | 2021-08-30 13:02 | P.PN ---
Subjective Progress Note Date: 08/30/21 Principal diagnosis: right breast invasive lobular cancer stage 1, left breast radial scar Ashanti is a 71 -year-old white female who presents with an abnormal right breast mammogram. She had a bilateral mammogram performed on which revealed an area of asymmetry in the right breast in the upper outer quadrant region. She subsequently underwent a right breast ultrasound which confirmed the area of concern to be a 1.9 x 1.4 cm irregular lesion at 9:00. She also underwent a right breast diagnostic mammogram. No lesions of concern were noted in the left breast. She does not feel anything of concern in either breast. In the remote past approximately 30 years ago she had undergone a right breast biopsy needle localization excisional biopsy which was benign. 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 A PET scan was performed which revealed that the area of concern revealed an enhancing mass in the right posterior vulva which was approximately 3.4 x 2.7 cm in size. She was treated with radiation and chemotherapy. She did not have surgery for this . She is going to follow up with this with a PET/CT. The the breast was biopsied on [id number]. 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 It was grade 2 ER/AR positive and HER-2 negative. The initial size was 2 x 1.1 cm. She underwent a bilateral breast MRI. The MRI revealed a questionable lesion in the left breast which was biopsied [place] [address] and revealed a radial scar. The MRI also revealed a questionable area in the right ribs which were confirmed by PET/CT 07-13-21 to be consistent with non-metastatic disease, and was most likely a healing fracture. She did have genetic testing done and was told this was negative. No new masses or nodules in her breast at this time. She completed her chemotherapy on July 09, 2021, and radiation on July 23. They wanted to do an additional round of chemotherapy but her WBC were too low. Family history: brother: hairy cell leukemia, stage 4 lung cancer not a smoker sister: colon polyps maternal aunt: pancreatic cnacer paternal cousin: kidney cancer Hormonal History: menarche: 15 , breast fed: no, age at first : 22 menopause: hysterectomy in 1988 at about 39, took ovaries BCP: used for about 2 years hormones: premarin patches 5 years Surgical history: hysterectomy and BSO not for cancer/ endometriosis total left knee right shoulder rotater cuff surgery D&C's Medical History: vulvar cancer HTN pain in back/arthritis takes tramadole Social history: Smoke: none alcohol: occasional drugs: none - Constitutional Constitutional: Reports night sweats, Denies chills, Denies fever - EENT Eyes: denies blurred vision, denies pain Ears: bilateral: decreased hearing, deny: tinnitus Ears, nose, mouth and throat: Denies headache, Denies sore throat - Breasts Breasts: bilateral: as per HPI - Cardiovascular Cardiovascular: Denies chest pain, Denies shortness of breath - Respiratory Respiratory: Denies cough - Gastrointestinal Gastrointestinal: Denies abdominal pain, Denies diarrhea, Denies nausea, Denies vomiting - Genitourinary (Female) Genitourinary: Reports as per HPI - Menstruation Comment: vulvar cancer Menstruation: Reports post hysterectomy - Musculoskeletal Comment: back pain - Integumentary Integumentary: Denies pruritus, Denies rash - Neurological Neurological: Denies numbness, Denies weakness - Psychiatric Psychiatric: Reports anxiety, Reports depression - Endocrine Endocrine: Denies fatigue, Denies weight change - Hematologic/Lymphatic Comment: none - Allergic/Immunologic Allergic/Immunologic: Reports seasonal allergies Objective - Vital Signs Vital signs: Vital Signs Temp 98.0 F 08/30/21 12:09 Pulse 75 08/30/21 12:09 Resp 18 08/30/21 12:09 BP 135/90 08/30/21 12:09 Pulse Ox 97 08/30/21 12:09 Intake & Output 08/29/21 08/30/21 08/30/21 18:59 06:59 18:59 Weight 76.204 kg - Exam BMI 30.7 - Constitutional General appearance: Present: cooperative - EENT Eyes: Present: EOMI ENT: Present: hearing grossly normal - Neck Neck: Present: normal ROM - Respiratory Respiratory: bilateral: CTA - Cardiovascular Rhythm: regular Heart sounds: normal: S1, S2 - Gastrointestinal General gastrointestinal: Present: soft - Integumentary Integumentary: Present: normal turgor - Musculoskeletal Musculoskeletal: Present: gait normal - Psychiatric Psychiatric: Present: A&O x's 3, appropriate affect, intact judgment & insight - Additional findings Additional findings: Breast Exam: BRA: 38B Inspection: bilateral grade 3 ptosis Palpation: right breast: POSITIONAL exam fibrocystic changes, no discrete dominant masses or nodules of concern Right axilla: No adenopathy of concern Left breast: Multiple positional exam fibrocystic changes no dominant masses or nodules of concern Left axilla: No adenopathy of concern Assessment and Plan Assessment: Impression: vulvar cancer HTN pain in back/arthritis takes tramadole Right breast invasive lobular carcinoma stage I Left breast radial scar MRI bilateral/right anterior rib cage evaluated with PET/CT most likely healing fracture, no evidence of metastatic disease Left breast lesion biopsy performed via ultrasound guidance consistent with that which was seen on MRI and findings of a radial scar Plan: 1. Bilateral needle localization and breast lumpectomies, bilateral mastectopexy incisions, right sentinel node injection, right sentinel node biopsy, possible right axillary node dissection, possible onco-plastic tissue transfer Cc: Dr. Vasquez
== END | disposition home or self-care (01) ==
LOC: WWCWWP 11:31
PROVIDERS: ATTEND Surgery
DX: Z53.9 Procedure and treatment not carried out, unspecified reason (principal)

== ENCOUNTER → 2021-08-31 | Outpatient (CLI) | payer MEDICARE ==
[2021-08-31 11:52] LABS: Basophils # (A) 0.1 k/uL (0-0.2); Basophils % (A) 1 %; Eosinophils # (A) 0.3 k/uL (0-0.7); Eosinophils % (A) 6 %; HCT 35.5 % (34.0-46.0); HGB 11.5 gm/dL (11.4-16.0); Lymphocytes # (A) 0.8 k/uL (1.0-4.8); Lymphocytes % (A) 17 %; MCH 35.5 pg (25.0-35.0); MCHC 32.3 g/dL (31.0-37.0); Macrocytosis Marked; Mean Platelet Volume 7.3; Monocytes # (A) 0.4 k/uL (0-1.0); Monocytes % (A) 8 %; Neutrophils % (A) 65 %; Platelet Count 189 k/uL (150-450); RBC 3.23 m/uL (3.80-5.40); RDW 13.9 % (11.5-15.5); WBC 4.5 k/uL (3.8-10.6)
== END | disposition home or self-care (01) ==
LOC: LABWHC1 11:06
PROVIDERS: ATTEND Surgery
DX: C50.412 Malignant neoplasm of upper-outer quadrant of left female breast (principal)
CPT/HCPCS: 36415; 85025

== ENCOUNTER 2021-09-04 08:39 | Day surgery (SDC) | payer MEDICARE ==
[2021-08-29 12:06] VITALS: BMI 30.5
[~2021-09-04 08:39] MED LIST changes: -DEXAMETHASONE SOD PHOSPHATE 10 MG/ML 1 ML VIAL IV ONE; +DEXAMETHASONE SOD PHOSPHATE 4 MG/ML 1 ML VIAL IV ONE; +HEPARIN SODIUM,PORCINE/PF 5,000 UNIT/0.5 ML SYRINGE SQ PRN; -HYDROmorphone 0.5 MG/0.5 ML SYRINGE IVP PRN; -MIDAZOLAM 2 MG/2 ML VIAL IV PRN; +Pre Op ABX Message 1 EACH MISC MISCELLANE ONE
[2021-09-04] MEDS ORDERED: LIDOCAINE 1% INJ 10MG/ML (20 ML MDV) SQ ONE (10:20)
[2021-09-04] MEDS ORDERED: MIDAZOLAM 2 MG/2 ML VIAL IVP ONE (11:28)
[2021-09-04] MEDS ORDERED: HEPARIN SODIUM,PORCINE 5,000 UNIT/ML 1 ML VIAL SQ ONE (11:35)
--- NOTE | 2021-09-04 11:36 | P.NAPBC ---
NAPBC Queries - NAPBC Queries Was patient's case review presented at [facility] tumor board? If no, comment.: Yes Was patient's pathology reviewed at [facility]? If no, comment.: Yes Was breast conservation surgery offered? If no, comment.: Yes Was sentinel node biopsy offered? If no, comment.: Yes Was diagnosis confirmed by percutaneous core biopsy? If no, comment.: Yes Is patient mastectomy patient?: No Was a preop referral to reconstructive surgeon offered?: No NAPBC Comments: patient also with vulvar cancer recently treated Clinical Stage: [id number]
[2021-09-04] MEDS ORDERED: HYDROmorphone (PF) 1 MG/ML ONE (11:49)
[2021-09-04] MEDS ORDERED: ROPIVACAINE 5 MG/ML 30 ML VIAL ONE (11:49)
[2021-09-04] MEDS ORDERED: MIDAZOLAM 2 MG/2 ML VIAL ONE (11:49)
[2021-09-04] MEDS ORDERED: PROPOFOL 10 MG/ML 20 ML VIAL IV ONE (11:49)
[2021-09-04] MEDS ORDERED: LIDOCAINE 1% INJ 10MG/ML (20 ML MDV) ONE (11:49)
[2021-09-04] MEDS ORDERED: ePHEDrine 50 MG/ML 1 ML VIAL ONE (11:49)
[2021-09-04] MEDS ORDERED: DEXAMETHASONE SOD PHOSPHATE 4 MG/ML 1 ML VIAL ONE (11:49)
[2021-09-04] MEDS ORDERED: fentaNYL (PF) 50 MCG/ML 2 ML AMP ONE (11:49)
[2021-09-04] MEDS ORDERED: SUCCINYLCHOLINE CHLORIDE 100 MG/5 ML SYR IV ONE (11:49)
[2021-09-04] MEDS ORDERED: SODIUM CHLORIDE 0.9% 50 ML with ceFAZolin 2,000 MG IV ONE ×2 (12:20)
[2021-09-04] MEDS ORDERED: METHYLENE BLUE 50 MG/10 ML AMPUL INJ ONE (12:31)
[2021-09-04] MEDS ORDERED: LACTATED RINGERS 1,000 ML IV ONE (14:00)
--- NOTE | 2021-09-04 14:46 | MM ---
EXAMINATION TYPE: MG pre op needle loc LT, MG surgical specimen LT, MG pre op needle loc RT, MG surgical specimen RT DATE OF EXAM: 09/04/2021 COMPARISON: 08/22/2021 and 06/22/2021 CLINICAL HISTORY: 71-year-old female referred for needle localization for surgical excision within both breasts. High risk radial scar left breast and biopsy proven invasive lobular carcinoma right breast. TECHNIQUE: Needle localization with wire placement and surgical excision of area of concern in each breast internal FINDINGS: The procedure of needle localization with wire placement and than surgical excision was explained to the patient. Benefits, alternatives, and risks were discussed. An informed consent was then obtained. LEFT BREAST, 2:00, RADIAL SCAR: The shortest pathway for procedure was chosen. Shortest pathway was a lateral approach. The overlying skin was prepped and draped in usual sterile fashion. Lidocaine was used as anesthetic into the skin and subcutaneous tissue up to the level of area of concern. A 7 cm Kopan's needle was used. It was placed via a lateral approach under mammographic guidance. Subsequent 90 degrees mammogram show the needle to be in satisfactory position relative to the targeted area. At this point, wire was placed and the needle was withdrawn. The wire was fixed to patient's skin. Images were marked for surgeon. Targeted clip and wire are identified in specimen mammogram. RIGHT BREAST, POSTERIOR UPPER OUTER QUADRANT, ILC: The shortest pathway for procedure was chosen. Shortest pathway was a lateral approach. The overlying skin was prepped and draped in usual sterile fashion. Lidocaine was used as anesthetic into the skin and subcutaneous tissue up to the level of area of concern. A 5 cm Kopan's needle was used. It was placed via a lateral approach under mammographic guidance. Subsequent 90 degrees mammogram show the needle to be in satisfactory position relative to the targeted area. At this point, wire was placed and the needle was withdrawn. The wire was fixed to patient's skin. Images were marked for surgeon. Targeted clip with associated density and wire are identified in specimen mammogram. The patient tolerated the procedure well without any immediate complication. The patient was kept in the radiology department for short stay after the procedure and then taken to surgery for surgical excision. The patient was kept in hospital for short stay after the procedure and then discharged home in stable condition. IMPRESSION: Successful, uncomplicated needle localization with wire placement and surgical excision of: 1. Biopsy-proven high risk radial scar 2:00 left breast. 2. Biopsy-proven invasive lobular carcinoma posterior upper outer quadrant right breast. Full pathology results to follow. Pathology Results: Malignant A. LEFT BREAST, LUMPECTOMY: Focal atypical ductal hyperplasia, margins negative. Previous biopsy site and proliferative fibrocystic changes including moderate usual type ductal hyperplasia and columnar cell hyperplasia. Negative for malignancy. B. RIGHT BREAST, LUMPECTOMY: Invasive pleomorphic lobular carcinoma, focally involving the anterior margin. Other margins negative. Extensive lobular neoplasia (ALH/LCIS). See Surgical Pathology Cancer Case Summary and Comment. C. DE-EPITHELIALIZED TISSUE, LEFT BREAST: Benign skin and subcutaneous tissue. D. RIGHT BREAST SENTINEL NODE: Lymph node negative for metastasis. CK7 and MAE immunoperoxidase stains are confirmatory (controls appropriate). E. DE-EPITHELIALIZED TISSUE, RIGHT SIDE: Benign skin and subcutaneous tissue. F. NEW MEDIAL MARGIN, RIGHT BREAST, EXCISION: Lobular carcinoma in situ (LCIS). Negative for invasive carcinoma. G. NEW LATERAL MARGIN, RIGHT BREAST, EXCISION: Benign breast tissue with fibrocystic changes. H. NEW SUPERIOR MARGIN, RIGHT BREAST, EXCISION: Benign breast tissue. I. NEW INFERIOR MARGIN, RIGHT BREAST, EXCISION: Benign fibroadipose tissue. Recommendation Surgical consult of the right and left breast. MELISSAD
--- NOTE | 2021-09-04 14:48 | NM ---
EXAMINATION TYPE: NM sentinel node injection DATE OF EXAM: 09/04/2021 COMPARISON: 06/22/2021 HISTORY: 71-year-old female biopsy-proven right breast invasive lobular carcinoma. New localization a lso performed today. TECHNIQUE AND FINDINGS: The procedure of sentinel lymph node injection was explained to the patient. The benefits, alternatives, and risks were discussed. An informed consent was then obtained. Overlying skin is cleaned with sterile alcohol. Following this, 480 uCi Tc99m Tilmanocept was inject ed in the upper outer aspect of the right nipple intradermally. The patient tolerated the procedure well without any immediate complication. The patient was kept in the radiology department for short stay after the procedure and then taken to surgery for surgical p rocedure what is presumed intraoperative gamma probe will be used for sentinel lymph node detection. IMPRESSION: Successful right breast radiotracer injection for sentinel node localization as above.
--- NOTE | 2021-09-04 14:50 | P.OP ---
Date of Procedure: 09/04/21 Preoperative Diagnosis: Right breast invasive, lobular carcinoma T2 N0 M0 G2, left breast radial scar Postoperative Diagnosis: same Procedure(s) Performed: Left breast lumpectomy for radial scar via donut mastopexy incision with onco- plstic tissue transfer, right breast sentinel node methylene blue mapping, localization lumpectomy via a donut mastopexy incision, onco-plastic tissue transfer Anesthesia: GETA Surgeon: Soraida Beltran Estimated Blood Loss (ml): 25 IV fluids (ml): 1,100 Pathology: other (breast tissue bilateral, sentinal node right) Condition: stable Disposition: same day Indications for Procedure: right breat invasive ductal cancer, left breast radial scar Operative Findings: fibrofatty breast tissue Description of Procedure: Ashanti is a 71 year old white female diagnosed with invasive lobular carcinoma of the right breast. She was also diagnosed with a vulvar carcinoma and underwent preoperative chemotherapy for this which was also felt to be effective against the breast cancer. She presents now for lumpectomy on the right side; a biopsy on the left revealed radial scar so she was also scheduled for excisional lumpectomy of the left side. The patient was first taken to radiology suite. Needle localization of the right and left breast area of concern was performed. Radioactive injection in the right periareolar region was performed. The patient was then brought to the preoperative area and markings were made for a donut mastopexy on each side. The patient was then brought to the operative suite. Following induction of anesthesia using the [place] counter there was not noted to be radioactivity in the right axilla. Therefore 10 cc of half-strength methylene blue were injected in the periareolar region and the breast was massaged. Following this both breasts were prepped and draped in a sterile fashion. The left breast was approached initially. The area for donut mastopexy skin was de-epithelialized. The breast tissue was entered. Dissection was performed down to the wire. Surrounding tissue was excised. The specimen was painted for orientation. Posterior dissection was down to the pectoralis muscle. Inferior and superior pillars were dissected free. The superior pillar was 4 x 2 cm 4, 8 cm and the inferior pillar was 4 x 1 cm for 4 cm. A total of 12 cm was dissected free. Following this titanium clips were placed. After we were assured that hemostasis was attained the wound was well irrigated. The deep tissues were closed using 3-0 Vicryl suture. The skin was closed using 2-0 Vicryl suture with a 4-0 running Monocryl followed by a nylon skin suture. The right breast was approached. The axilla was approached initially. Using the [place] counter no increased radioactivity was noted an incision was therefore made. Once the incision was made using the [place] counter some increased radioactivity was identified. This tissue was elevated and noted also to be blue. This was excised. The 10 second count on this was 1124 and the background count was 1. The patient had no other palpable adenopathy of concern. The deep tissues were closed using 3-0 Vicryl suture. This is followed by a 4-0 Monocryl skin suture. Following this the area for the donut mastopexy on the right was de- epithelialized. The breast parenchyma was entered. Dissection was performed down to the localizing needle. Surrounding tissue was excised. Superior and inferior pillars were created. The superior pillar was 6 x 3 cm for 18 cm and the inferior pillar was 6 x 3 cm for 18 cm. A total of 36 cm was mobilized. Titanium clips were placed. The specimen was painted for orientation. This was sent to radiology and the area of concern was noted to have been removed. New superior, inferior, medial and lateral margins were obtained. Anteriorly dissection was just under the skin and posterior dissection was on the pectoralis muscle. The deep tissues were brought together using 3-0 Vicryl suture. The periareolar incision was closed using a 4-0 Monocryl. This was followed by a nylon skin suture.
--- NOTE | 2021-09-04 14:52 | P.DS ---
Providers Attending physician: Soraida Beltran Primary care physician: Malaika Linda Plan - Discharge Summary Discharge Rx Participant: Yes New Discharge Prescriptions: No Action Metoprolol Succinate [Toprol XL] 50 mg PO HS Acetaminophen Tab [Tylenol Tab] 1,000 mg PO Q6HR PRN PRN Reason: Pain Albuterol Inhaler (Mhu) [Ventolin Hfa Inhaler] 1 - 2 puff INHALATION RT-Q6H PRN PRN Reason: sob Aspirin [Adult Low Dose Aspirin EC] 81 mg PO DAILY traMADol HCL [Ultram] 20 - 50 mg PO BID PRN PRN Reason: Pain Discharge Medication List Metoprolol Succinate [Toprol XL] 50 mg PO HS 05/17/14 [History] Acetaminophen Tab [Tylenol Tab] 1,000 mg PO Q6HR PRN 07/27/19 [History] Albuterol Inhaler (Mhu) [Ventolin Hfa Inhaler] 1 - 2 puff INHALATION RT-Q6H PRN 07/27/19 [History] traMADol HCL [Ultram] 20 - 50 mg PO BID PRN 05/10/21 [History] Aspirin [Adult Low Dose Aspirin EC] 81 mg PO DAILY 08/29/21 [History] Follow up Appointment(s)/Referral(s): Soraida Beltran MD [STAFF PHYSICIAN] - 09/13/21 1:20 pm Activity/Diet/Wound Care/Special Instructions: wear bra at all times do not drive if taking narcotic pain medicine or for 24 hours from discharge may shower after 48 hours Discharge Disposition: HOME SELF-CARE
[2021-09-04 15:03] VITALS: TEMP 97.5
[2021-09-04] MEDS: HYDROmorphone 0.5 MG/0.5 ML SYRINGE IVP PRN ×2 (15:05→15:23)
[2021-09-04 17:02] VITALS: BP 124/70; PULSE 90; RESP 20
--- NOTE | 2021-09-05 07:16 | P.ANPRN ---
Procedure Note - Anesthesia - Nerve Block Performed Bilateral Erector Spinae Single Time Out Performed: Yes Date of Procedure: 09/04/21 Procedure Start Time: Procedure Stop Time: Location of Patient: PreOp Indication: Acute Post-Operative Pain, Requested by Surgeon Sedation Type: Sedate with meaningful contact maintained Preparation: Sterile Prep Position: Prone Needle Types: Pajunk Needle Gauge: 21 Ultrasound used to visualize needle placement: Yes Ultrasound used to observe medication spread: Yes Blood Aspirated: No Pain Paresthesia on Injection Noted: No Resistance on Injection: Normal Image Stored and Saved: Yes Events: Uneventful and Well Tolerated (ropi .5% 15 cc plus dexamethasone 4mg plus ns 10cc given bilaterally at T4)
== END 2021-09-04 17:09 | disposition home or self-care (01) ==
LOC: OR 08:39
PROVIDERS: ATTEND Surgery
DX: C50.412 Malignant neoplasm of upper-outer quadrant of left female breast (principal)
CPT/HCPCS: 19302; 37224; 37252; 76937; 64999; 88305; 88342; 88307; 76098 ×2; 19281; 38792; C1819 ×2; A9520; J2250; J1644; J1100; J2405; J0690; J2001; J3010; J1170 ×2; J2795; J0330; J2704; Q9968

== ENCOUNTER → 2021-09-13 | Outpatient (CLI) | payer MEDICARE ==
[2021-09-13 13:32] VITALS: BP 117/75; PULSE 72; RESP 16; TEMP 98.2
--- NOTE | 2021-09-13 14:22 | P.PN ---
Progress Note - Text Progress Note Date: 09/13/21 Ashanti is a 71-year-old white female status post left breast biopsy and right breast lumpectomy and sentinel node biopsy on 120 522. Pathology in the left breast revealed focal atypical ductal hyperplasia margins negative, Right breast: Lumpectomy invasive pleomorphic lobular carcinoma focally involving the anterior margin all other margins negative tumor size 2 cm [place] lymph node negative Patient is doing well postoperatively. The anterior margin was dissected to directly under the skin and I have discussed the case with Dr. Bolden does not feel that further surgical resection is . Physical exam: Lungs: Clear Heart: Regular rate and rhythm Incisions: Clean and dry bilateral donut mastopexy incisions Suture is not ready for removal yet Impression: Invasive pleomorphic lobular carcinoma right breast anterior margin positive [place] node right negative Left breast atypical ductal hyperplasia Plan: Appointment radiation oncology Suture removal next week Follow-up medical oncology At this time as anterior dissection was right under the skin and further resecti on was not recommended CC: Dr. Rogers
== END ==
LOC: WWCWWP 12:50
PROVIDERS: ATTEND Surgery
DX: Z53.9 Procedure and treatment not carried out, unspecified reason (principal)

== ENCOUNTER → 2021-09-18 | Outpatient (CLI) | payer MEDICARE ==
--- NOTE | 2021-09-18 15:35 | P.PN ---
Progress Note - Text Progress Note Date: 09/18/21 Ashanti is a 71-year-old white female status post left breast biopsy and right breast lumpectomy and sentinel node biopsy on 120 522. Pathology in the left breast revealed focal atypical ductal hyperplasia margins negative, Right breast: Lumpectomy invasive pleomorphic lobular carcinoma focally involving the anterior margin all other margins negative tumor size 2 cm [place] lymph node negative Patient is doing well postoperatively. The anterior margin was dissected to directly under the skin and I have discussed the case with Dr. Bolden does not feel that further surgical resection is . Physical exam: Incisions: Clean and dry bilateral donut mastopexy incisions Suture is ready for removal Impression: Invasive pleomorphic lobular carcinoma right breast anterior margin positive [place] node right negative Left breast atypical ductal hyperplasia Plan: Appointment radiation oncology Suture removal Follow-up medical oncology At this time as anterior dissection was right under the skin and further resection was not recommended follow up in 1 week CC: Dr. Rogers
== END | disposition home or self-care (01) ==
LOC: WWCWWP 11:52
PROVIDERS: ATTEND Surgery
DX: Z53.9 Procedure and treatment not carried out, unspecified reason (principal)

== ENCOUNTER → 2021-09-28 | Outpatient (CLI) | payer MEDICARE ==
--- NOTE | 2021-09-28 12:49 | P.PN ---
Progress Note - Text Progress Note Date: 09/28/21 Ashanti is a 71-year-old white female status post left breast biopsy and right breast lumpectomy and sentinel node biopsy on . Pathology in the left breast revealed focal atypical ductal hyperplasia margins negative, Right breast: Lumpectomy invasive pleomorphic lobular carcinoma focally involving the anterior margin all other margins negative tumor size 2 cm [place] lymph node negative Patient is doing well postoperatively. The anterior margin was dissected to directly under the skin and I have discussed the case with Dr. Bolden does not feel that further surgical resection is needed. Physical exam: Incisions: Clean and dry bilateral donut mastopexy incisions Suture is ready for removal Impression: Invasive pleomorphic lobular carcinoma right breast anterior margin positive [place] node right negative Left breast atypical ductal hyperplasia Plan: Appointment radiation oncology 10-05-21 Suture removal Follow-up medical oncology At this time as anterior dissection was right under the skin and further resection was not recommended Follow-up in 4 months CC: Dr. Vasquez
== END | disposition home or self-care (01) ==
LOC: WWCWWP 12:01
PROVIDERS: ATTEND Surgery
DX: Z53.9 Procedure and treatment not carried out, unspecified reason (principal)

== ENCOUNTER → 2021-09-28 | Outpatient (CLI) | payer MEDICARE ==
--- NOTE | 2021-10-04 15:07 | PE ---
Nuclear medicine PET/CT HISTORY: Vulvar cancer, subsequent, invasive right breast lobular carcinoma Patient received 9.3 mCi F-18 FDG intravenously and delayed scanning was performed from the skull bas e to the mid thighs. A localization and attenuation correction CT scan was performed. Correlation to prior exam 07/13/2021 Chest and neck: There is mild uptake at the level of the bilateral breasts, bilateral surgical clips are present, findings may be postinflammatory. Right axilla also shows mild uptake with probable post op changes, correlate for appropriate clinical history. There is no cervical or supraclavicular adeno sandra. There is no mediastinal, axillary, hilar adenopathy. There is no evident lung mass. No pleural or pericardial effusion. Ascending aorta is borderline aneurysmal as noted on prior. ABDOMEN: There is no evident liver mass. No ascites or retroperitoneal adenopathy. No adrenal mass. T here is no suspicious uptake. Diverticular changes associated with the sigmoid colon, uptake along th e sigmoid colon is indeterminate. Uterus and adnexal structures are absent. Mild uptake is noted mari g the level of the perineum on the right which is decreased compared to prior exam, SUV is 4.1. No pe lvic adenopathy or free fluid. Osseous structures show no suspicious uptake. IMPRESSION: Postop changes noted as described. Interval improvement in uptake seen to the perineum. A ortic aneurysm.
== END | disposition home or self-care (01) ==
LOC: RADPETMAIN 09:49
PROVIDERS: ATTEND Radiology Radiation Oncology
DX: C51.9 Malignant neoplasm of vulva, unspecified (principal)
CPT/HCPCS: 78815; A9552

== ENCOUNTER → 2021-11-21 | Outpatient (CLI) | payer MEDICARE ==
--- NOTE | 2021-11-21 17:12 | BD ---
EXAMINATION TYPE: Axial Bone Density DATE OF EXAM: 11/21/2021 COMPARISON: NONE CLINICAL HISTORY: 71 years year old Female. ICD-10 CODE: Z03.89 OBSERVATION FOR SUSPECTED METS,C50.4 11 Height: 63 Weight: 169.6 FRAX RISK QUESTIONS: Alcohol (3 or more units per day): NO Family History (Parent hip fracture): NO Glucocorticoids (More than 3mos): NO (Ex: prednisone, prednisolone, methylprednisolone, dexamethasone, and hydrocortisone). History of Fracture in Adulthood: YES Secondary Osteoporosis: 1. Type 1 Diabetes: NO 2. Hyperthyroidism: NO 3. Menopause before 45: YES Rheumatoid Arthritis: YES Current Tobacco Use: NO RISK FACTORS HISTORY OF: History of Wrist Fracture: RT WRIST When: AGE 17 Family History of Osteoporosis: NO Active: NO Postmenopausal woman: YES Take estrogen and/or progesterone medications: N MEDICATIONS: ARIMIDEX How Lon WEEK EXAM MEASUREMENTS: Bone mineral densitometry was performed using the [employer] System. Bone mineral density as measured about the Lumbar spine is: ----- L1-L4(G/cm2): 0.962 T Score Values are as follows: ----- L1:-1.5 ----- L2: -2.3 ----- L3: -1.6 ----- L4: -1.7 ----- L1-L41.7: Bone mineral density has: BASELINE Bone mineral density about the R hip (g/cm2): 0.796 Bone mineral density about the L hip (g/cm2): 0.772 T Score values are as follows: -----R Neck -1.7 -----L Neck: -1.9 -----R Total: -1.3 -----L Total: -1.7 Bone mineral density has: BASELINE FRAX%s: The graph provided illustrates a 18.3% chance for a major osteoporotic fx and a 3.7% chance f or the hips probability for fx in 10 years time. IMPRESSION: Osteopenia (T Score between -2.5 and -1). There is slightly increased risk of fracture and the patient may be considered for treatment. Re-Screen 2-5 years. NOTE: T-SCORE=SD OF THE YOUNG ADULT MEAN.
== END | disposition home or self-care (01) ==
LOC: RADBDWWP 11:08
PROVIDERS: ATTEND Internal Medicine Hematology & Oncology
DX: Z03.89 Encounter for observation for other suspected diseases and conditions ruled out (principal); C50.411 Malignant neoplasm of upper-outer quadrant of right female breast
CPT/HCPCS: 77080

== ENCOUNTER → 2022-01-25 | Outpatient (CLI) | payer MEDICARE ==
[2022-01-25 15:45] VITALS: BP 131/79; PULSE 76; RESP 18; TEMP 98.3
--- NOTE | 2022-01-25 15:46 | P.PN ---
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 She had a bilateral mammogram performed on which revealed an area of asymmetry in the right breast in the upper outer quadrant region. She subsequently underwent a right breast ultrasound which confirmed th e area of concern to be a 1.9 x 1.4 cm irregular lesion at 9:00. She also underwent a right breast diagnostic mammogram. No lesions of concern were noted in the left breast. She does not feel anything of concern in either breast. In the remote past approximately 30 years ago she had undergone a right breast biopsy needle localization excisional biopsy which was benign. 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 A PET scan was performed which revealed that the area of concern revealed an enhancing mass in the right posterior vulva which was approximately 3.4 x 2.7 cm in size. She was treated with radiation and chemotherapy. She did not have surgery for this . She is going to follow up with this with a PET/CT. The the breast was biopsied on [id number]. 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 It was grade 2 ER/MS positive and HER-2 n egative. The initial size was 2 x 1.1 cm. She underwent a bilateral breast MRI. The MRI revealed a questionable lesion in the left breast which was biopsied and and revealed a radial scar. The MRI also revealed a questionable area in the right ribs which were confirmed by PET/CT 07-13-21 to be consistent with non-metastatic disease, and was most likely a healing fracture. She did have genetic testing done and was told this was negative. No new masses or nodules in her breast at this time. She completed her chemotherapy on July 09, 2021, and radiation on July 23. They wanted to do an additional round of chemotherapy but her WBC were too low. She underwent on 09-04-21 a right breast lumpectomy and SNB, she finished radiation therapy on 11-07-21. The patient had a PET scan done at [facility] and was told no activity at this time of recurrence. She is having a bilateral mammogram in April, and will have a repeat PET scan as per [facility]. She tolerating Anestrazole Family history: brother: hairy cell leukemia, stage 4 lung cancer not a smoker sister: colon polyps maternal aunt: pancreatic cnacer paternal cousin: kidney cancer Hormonal History: menarche: 15 , breast fed: no, age at first : 22 menopause: hysterectomy in 1988 at about 39, took ovaries BCP: used for about 2 years hormones: premarin patches 5 years Surgical history: hysterectomy and BSO not for cancer/ endometriosis total left knee right shoulder rotater cuff surgery D&C's Medical History: vulvar cancer HTN pain in back/arthritis takes tramadole Social history: Smoke: none alcohol: occasional drugs: none - Constitutional Constitutional: Reports night sweats, Denies chills, Denies fever - EENT Eyes: denies blurred vision, denies pain Ears: bilateral: decreased hearing, deny: tinnitus Ears, nose, mouth and throat: Denies headache, Denies sore throat - Breasts Breasts: bilateral: as per HPI - Cardiovascular Cardiovascular: Denies chest pain, Denies shortness of breath - Respiratory Respiratory: Denies cough - Gastrointestinal Gastrointestinal: Denies abdominal pain, Denies diarrhea, Denies nausea, Denies vomiting - Genitourinary (Female) Genitourinary: Reports as per HPI - Menstruation Comment: vulvar cancer Menstruation: Reports post hysterectomy - Musculoskeletal Comment: back pain - Integumentary Integumentary: Denies pruritus, Denies rash - Neurological Neurological: Denies numbness, Denies weakness - Psychiatric Psychiatric: Reports anxiety, Reports depression - Endocrine Endocrine: Denies fatigue, Denies weight change - Hematologic/Lymphatic Comment: none - Allergic/Immunologic Allergic/Immunologic: Reports seasonal allergies Objective - Constitutional General appearance: Present: cooperative - EENT Eyes: Present: EOMI ENT: Present: hearing grossly normal - Neck Neck: Present: normal ROM - Respiratory Respiratory: bilateral: CTA - Cardiovascular Heart sounds: normal: S1, S2 - Integumentary Integumentary: Present: normal turgor - Musculoskeletal Musculoskeletal: Present: gait normal - Psychiatric Psychiatric: Present: A&O x's 3, appropriate affect, intact judgment & insight - Additional findings Additional findings: Breast Exam: BRA: XL sports bra inspection: Post operative and radiation changes right breast postop changes left breast Palpation: Right breast: Multiple positional exam fibrocystic changes/postop and post radiation changes no evidence of any recurrence Right axilla: No adenopathy of concern Left breast: Multiple positional exam no dominant masses or nodules of concern Left axilla: No adenopathy of concern Assessment and Plan Assessment: Impression: No evidence of recurrent right breast invasive lobular carcinoma Patient with a recent PET scan at [facility] told no evidence of recurrent vulvar cancer we will obtain those studies Plan: Follow-up after PET scan done in 3 months Patient is follow up sooner if any questions or concerns she is taking anestrazole/ following with DR. Virgen Cc: Dr. Linda
== END ==
LOC: WWCWWP 15:31
PROVIDERS: ATTEND Surgery
DX: Z85.3 Personal history of malignant neoplasm of breast (principal); Z08 Encounter for follow-up examination after completed treatment for malignant neoplasm; Z85.44 Personal history of malignant neoplasm of other female genital organs; I10 Essential (primary) hypertension; M19.90 Unspecified osteoarthritis, unspecified site; Z79.891 Long term (current) use of opiate analgesic

== ENCOUNTER → 2022-04-26 | Outpatient (CLI) | payer MEDICARE ==
--- NOTE | 2022-04-26 11:29 | MM ---
Reason for Exam: Hx of breast cancer, conservation therapy. Last screening mammogram was performed 12 month(s) ago. Patient History: Menarche at age 15. First Full-Term at age 21. Left ovary removed at age 39. Right ovary removed at age 39. Hysterectomy at age 39. Postmenopausal. Breast cancer, right, age 71. Other cancer, age 71. Patient used Estrogen for 4 years. 09/04/2021, Bilateral Lumpectomy. 09/04/2021, Bilateral Lumpectomy. Benign Excisional Biopsy on the right side. 09/04/2021, Malignant Core Biopsy on the right side. 09/04/2021, Malignant Core Biopsy on the left side. 08/22/2021, Benign Core Biopsy on the left side. 05/23/2021, Malignant Core Biopsy on the right side. Chemotherapy. 2020, Radiation Therapy on the right side. Tissue Density: There are scattered fibroglandular densities. Findings: Analyzed By CAD. Bilateral surgical clips are present. No suspicious interval change is evident. No suspicious groups of microcalcifications, spiculated or lobular masses, architectural distortion or other secondary signs of malignancy are mammographically apparent. Overall Assessment: Benign, BI-RAD 2 Management: Diagnostic Mammogram of both breasts in 1 year. A negative mammogram report should not preclude additional follow up of suspicious palpable abnormalities. Patient should continue monthly self breast exam. A clinical breast exam by your physician is recommended on an annual basis and results should be correlated with mammographic findings. Electronically signed and approved by: Augusto Richardson D.O. Radiologis
== END | disposition home or self-care (01) ==
LOC: RADMAMWWP 10:51
PROVIDERS: ATTEND Radiology Radiation Oncology
DX: C50.911 Malignant neoplasm of unspecified site of right female breast (principal); C50.411 Malignant neoplasm of upper-outer quadrant of right female breast; C51.9 Malignant neoplasm of vulva, unspecified; Z92.3 Personal history of irradiation; Z98.890 Other specified postprocedural states
CPT/HCPCS: 77066; G0279; 77062

== ENCOUNTER → 2022-05-02 | Outpatient (CLI) | payer MEDICARE ==
[2022-05-02 09:04] VITALS: BP 144/87; PULSE 64; RESP 17; TEMP 98.3
--- NOTE | 2022-05-02 09:49 | P.PN ---
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 This was for a right breast invasive lobular carcinoma and a left breast radial scar diagnosed by MRI biopsy. Pathology reviewed in the left breast focal atypical ductal hyperplasia. In the right breast was noted to have an invasive pleomorphic lobular carcinoma focally involving the anterior margin. It was felt that dissection of the performed close under the skin and she was treated with radiation for this. The tumor was pT1c 1 sentinel node was removed which was negative for metastatic disease. Regarding treatment of the breast the patient underwent lumpectomy and sentinel node biopsy as stated on 120 522, was felt that the anterior margin could be treated with radiation therapy. She completed a course of radiation therapy for the breast in 322. Additionally an Oncotype DX was performed on the right breast lumpectomy which shows score of 23 with less than 1% benefit from chemotherapy. She has been treated with anastrozole she is tolerating. [place] [address] which was benign BIRADS 2. The patient is complaining of some pain in the upper outer quadrant of the right breast, which is intermittent. She is also complaining of some arthritis in her shoulder. 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 This was treated with chemoradiation and no surgery. Her most recent PET scan was on 12-20-21 and revealed 1. there are FDG avid peripheral right upper lobe pulmonary opacity could be inflammatory in origin infectious in etiology. Recommend a short interval CTs follow-up to confirm resolution 2. Further decreased in extent of the metabolic activity at the right lower vaginal/volar soft tissue density Note from Dr. Virgen reviewed 03-25-22 Family history: brother: hairy cell leukemia, stage 4 lung cancer not a smoker sister: colon polyps maternal aunt: pancreatic cnacer paternal cousin: kidney cancer Hormonal History: menarche: 15 , breast fed: no, age at first : 22 menopause: hysterectomy in 1988 at about 39, took ovaries BCP: used for about 2 years hormones: premarin patches 5 years Surgical history: hysterectomy and BSO not for cancer/ endometriosis total left knee right shoulder rotater cuff surgery D&C's Medical History: vulvar cancer HTN pain in back/arthritis takes tramadole Social history: Smoke: none alcohol: occasional drugs: none Objective - Vital Signs Vital signs: Vital Signs Temp 98.3 F 05/02/22 09:02 Pulse 64 05/02/22 09:02 Resp 17 05/02/22 09:02 BP 144/87 05/02/22 09:02 Pulse Ox 96 05/02/22 09:02 FiO2 Intake & Output 05/01/22 05/02/22 05/02/22 18:59 06:59 18:59 Weight 77.111 kg - Constitutional General appearance: Present: cooperative - EENT Eyes: Present: EOMI ENT: Present: hearing grossly normal - Neck Neck: Present: normal ROM - Respiratory Respiratory: bilateral: CTA - Cardiovascular Heart sounds: normal: S1, S2 - Gastrointestinal General gastrointestinal: Present: soft - Integumentary Integumentary: Present: normal turgor - Musculoskeletal Musculoskeletal: Present: gait normal - Psychiatric Psychiatric: Present: A&O x's 3, appropriate affect, intact judgment & insight - Additional findings Additional findings: Bresat Exam: BRA: 40B Inspection: Postradiation surgical changes right breast, well-healed scar left breast Palpation: Right breast: Multiple positional exam Postsurgical and radiation changes most prominent upper outer quadrant area. No other dominant masses or nodules of concern Right axilla: No adenopathy of concern tightness on the pectoral muscle Left breast: Multiple positional exam fibrocystic changes no dominant masses or nodules of concern Left axilla: No adenopathy of concern Assessment and Plan Assessment: Impression: Patient status post right breast lumpectomy and sentinel node biopsy in , at this time she has no evidence of recurrent disease. She does h ave some discomfort with the right shoulder as well as some post radiation and surgical changes in the upper outer quadrant region of the breast. Vulvar carcinoma stage III being followed at [facility] she has completed radiation and chemotherapy for this. Her most recent PET scan was in December 2021 and it was recommended that a computed tomography scan of the chest be performed secondary to a pulmonary nodule. Plan: 1. Ultrasound of the axilla to assure that there is nothing of concern in the axilla 2. Computed tomography scan of the chest to rule out any pulmonary nodules of concern; attention to PET scan findings in December 2021 3. Core biopsy of the area of fullness in the right breast upper outer quadrant to assure that this is scar tissue 4. Continue anastrozole 5. Continue follow-up with [facility] as well as Dr. Virgen 6. We've discussed physical therapy regarding the patient is complaints of some discomfort in her right shoulder/arm and at this time she has declined CC: Dr. Vasquez
== END | disposition home or self-care (01) ==
LOC: WWCWWP 08:48
PROVIDERS: ATTEND Surgery
DX: Z53.9 Procedure and treatment not carried out, unspecified reason (principal)

== ENCOUNTER → 2022-05-02 | Outpatient (CLI) | payer MEDICARE ==
--- NOTE | 2022-05-02 10:24 | USB ---
Reason for Exam: Clinical finding. Patient History: Menarche at age 15. First Full-Term at age 21. Left ovary removed at age 39. Right ovary removed at age 39. Hysterectomy at age 39. Postmenopausal. Breast cancer, right, age 71. Other cancer, age 71. Patient used Estrogen for 4 years. 09/04/2021, Bilateral Lumpectomy. 09/04/2021, Bilateral Lumpectomy. Benign Excisional Biopsy on the right side. 09/04/2021, Malignant Core Biopsy on the right side. 09/04/2021, Malignant Core Biopsy on the left side. 08/22/2021, Benign Core Biopsy on the left side. 05/23/2021, Malignant Core Biopsy on the right side. Chemotherapy. 2020, Radiation Therapy on the right side. Technique: Method: Targeted. Prior Study Comparison: 06/22/2021 Right Diagnostic Mammogram, [facility]. 08/22/2021 Left Diagnostic Mammogram, [facility]. 04/26/2022 Bilateral MG 3D diag mammo w/cad QUIN, [facility]. Findings: The axilla of the right breast was scanned. Targeted scanning axilla shows no abnormal lymphadenopathy or solid or cystic lesion. Just adjacent to the axilla near the patient's scar 10:00, 10 cm from the level, there is an elongated heterogeneous area measuring 1.5 x 1.0 x 0.5 cm. Portions are multilocular cystic than in the area of nodular soft tissue measuring 6 mm is also present. Possible posttreatment change with scar. Tissue sampling can be considered. Overall Assessment: Suspicious, BI-RAD 4 Management: Ultrasound Core Biopsy of the right breast. Electronically signed and approved by: Judy Meneses M.D. Radiologist
== END | disposition home or self-care (01) ==
LOC: RADUSWWP 09:51
PROVIDERS: ATTEND Surgery
DX: Z85.3 Personal history of malignant neoplasm of breast (principal)

== ENCOUNTER → 2022-05-06 | Day surgery (SDC) | payer MEDICARE ==
--- NOTE | 2022-05-08 10:35 | USB ---
Pathology Description: Location: 10 o'clock, upper outer quadrant, middle. Cores: 6 Gauge: 13 The procedure of ultrasound guided core biopsy was explained to the patient. Benefits, alternatives, and risks were discussed. An informed consent was then obtained. The complex elongated lesion at the 10:00 position, is identified and targeted for biopsy. Possible combination of postsurgical seroma fluid and scarring. The patient was placed in supine positioning for imaging and for the procedure. The overlying skin was prepped and draped in usual sterile fashion. Lidocaine was used as anesthetic into the skin and subcutaneous tissue up to area of concern in the 10:00 right breast. Under ultrasound guidance, a 13-gauge vacuum-assisted mammotome Elite biopsy device was used to obtain 6 core samples. Following this, a ribbon clip was left at the site of biopsy. The patient tolerated the procedure well without any immediate complication. The patient was kept in the radiology department for short stay after the procedure and then discharged home in stable condition. Postprocedure mammogram: The patient was transferred to mammography for physician ordered post procedure mammogram for clip placement verification. The mammogram shows ribbon clip in the upper outer quadrant just anterior to the excisional site. Impression: Successful, uncomplicated ultrasound guided core biopsy of the complex area 10:00 right breast located just anterior to the excisional site. Some postoperative changes are suspected. Full pathology results to follow. Pathology Results: Result: Benign, Fat necrosis. RIGHT BREAST, 10:00, ULTRASOUND GUIDED CORE BIOPSY: Scar/fat necrosis with chronic inflammation, histiocytes, and foreign body giant cell reaction to refractile material. Negative for malignancy. Tissue Density: Right: There are scattered fibroglandular densities. Overall Assessment: Benign Assessment: MG diagnostic mammo RT wo CAD - Right: Benign, BI-RAD 2. Management: Diagnostic Breast Ultrasound of the right breast in 6 months. Electronically signed and approved by: Judy Meneses M.D. Radiologist
== END ==
LOC: RADUSWWP 09:51
PROVIDERS: ATTEND Surgery
DX: R92.8 Other abnormal and inconclusive findings on diagnostic imaging of breast (principal); N64.1 Fat necrosis of breast
CPT/HCPCS: 19083; 88305; 77065; A4648

== ENCOUNTER → 2022-05-20 | Outpatient (CLI) | payer MEDICARE ==
--- NOTE | 2022-05-20 15:24 | CT ---
EXAMINATION TYPE: CT chest wo/w con DATE OF EXAM: 05/20/2022 COMPARISON: 06/09/2015, PET/CT 09/28/2021 HISTORY: prior abnormal chest imaging, hx of breast ca CT DLP: 675.8 mGycm, Automated exposure control for dose reduction was used. CONTRAST: Performed injected with 100 mL of Isovue 370. TECHNIQUE: Axial images were obtained at 5 mm thick sections. Reconstructed images are reviewed on [employer] computer in the coronal plane. FINDINGS: Portion of the thyroid visualized is normal. Some subtle pneumonitis type changes are along the periphery of the right lung on the right. Findings are an interval change. There is a stable 0.4cm nodule identified, series 4 image 24. Newly identif ied Punctate peripheral nodule is in the lateral left lung base. Series 4 image 43. No enlarged mediastinal or hilar adenopathy is evident. Small axillary lymph nodes are present bila terally. The ascending aorta diameter at the level of the main pulmonary artery is 4.0 cm. The main pulmonary artery diameter at the bifurcation is 2.[address] sections are obtained through the upper abdomen. Abdomen is essentially unremarkable. IMPRESSIONS: 1. Some pneumonitis changes in the periphery of the right lung. Correlate for right breast radiation changes. 2. Couple of small nodules, the larger is been present previously follow-up 6 months is recommended.
== END | disposition home or self-care (01) ==
LOC: RADCTMAIN 10:57
PROVIDERS: ATTEND Surgery
DX: R91.8 Other nonspecific abnormal finding of lung field (principal)
CPT/HCPCS: 82565; 84520; 71270; 36415; Q9967

== ENCOUNTER → 2023-05-23 | Outpatient (CLI) | payer MEDICARE ==
--- NOTE | 2023-05-23 11:39 | MM ---
Reason for Exam: Additional evaluation requested from prior study. Last mammogram was performed 1 year(s) and 1 month(s) ago. Patient History: Menarche at age 15. First Full-Term at age 21. Left ovary removed at age 39. Right ovary removed at age 39. Hysterectomy at age 39. Postmenopausal. Breast cancer, right, age 71. Other cancer, age 71. Previous chest radiation therapy at age 71. Patient used Estrogen for 4 years. 05/06/2022, Benign US biopsy breast VAD RT on the right side. 09/04/2021, Bilateral Lumpectomy. 09/04/2021, Bilateral Lumpectomy. Benign Excisional Biopsy on the right side. 09/04/2021, Malignant Core Biopsy on the right side. 09/04/2021, Malignant Core Biopsy on the left side. 08/22/2021, Benign Core Biopsy on the left side. 05/23/2021, Malignant Core Biopsy on the right side. Chemotherapy. 2020, Radiation Therapy on the right side. Prior Study Comparison: 09/29/2015 Screening Mammogram, [facility]. 04/03/2018 Screening Mammogram, [facility]. 04/23/2018 Left Diagnostic Ultrasound, [facility]. 04/25/2021 Bilateral Diagnostic Mammogram, [facility]. 05/09/2021 Right Diagnostic Mammogram, [facility]. 05/09/2021 Right Diagnostic Ultrasound, [facility]. 05/23/2021 Right Diagnostic Mammogram, [facility]. 06/22/2021 Right Diagnostic Ultrasound, [facility]. 06/22/2021 Right Diagnostic Mammogram, [facility]. 07/23/2021 Left Diagnostic Ultrasound, [facility]. 07/27/2021 Left Diagnostic Ultrasound, [facility]. 08/22/2021 Left Diagnostic Mammogram, [facility]. 04/26/2022 Bilateral MG 3D diag mammo w/cad QUIN, [facility]. 05/02/2022 Right US breast axilla RT, [facility]. Tissue Density: The breast tissue is heterogeneously dense. This may lower the sensitivity of mammography. Findings: Analyzed By CAD. Postoperative distortion right breast is stable. Surgical clips left breast as well. No suspicious calcifications seen within either breast. Traumatic oil cyst and dystrophic calcifications right breast. Overall Assessment: Benign, BI-RAD 2 Management: Diagnostic Mammogram of both breasts in 1 year. . Results were given to the patient verbally at the time of exam. Patient should continue monthly self-breast exams. A clinical breast exam by your physician is recommended on an annual basis. This exam should not preclude additional follow-up of suspicious palpable abnormalities. Note on Marisela scores and lifetime risk: 1. A Marisela score greater than 3% is considered moderate risk. If this is the case, consider specialist referral to assess eligibility for a risk reducing agent. 2. If overall lifetime risk for the development of breast cancer is 20% or higher, the patient may qualify for future screening with alternating mammogram and breast MRI. Electronically signed and approved by: Dani Parker M.D. Radiologis
== END | disposition home or self-care (01) ==
LOC: RADMAMWWP 10:55
PROVIDERS: ATTEND Family Medicine
DX: R92.333 Mammographic heterogeneous density, bilateral breasts (principal); Z85.3 Personal history of malignant neoplasm of breast; Z78.0 Asymptomatic menopausal state
CPT/HCPCS: 77066; G0279; 77062

== ENCOUNTER → 2024-01-28 | Outpatient (CLI) | payer MEDICARE ==
--- NOTE | 2024-01-28 11:25 | BD ---
EXAMINATION TYPE: Axial Bone Density DATE OF EXAM: 01/28/2024 CLINICAL HISTORY: 73 years old Female. ICD-10 CODE: C50.411 MALIG NEOPLM OF UPPER-OUTER QUADRANT OF RI Height: 61 Weight: 172.6 FRAX RISK QUESTIONS: Alcohol (3 or more units per day): no Family History (Parent hip fracture): no Glucocorticoids (More than 3mos): no (Ex: prednisone, prednisolone, methylprednisolone, dexamethasone, and hydrocortisone). History of Fracture in Adulthood: yes Secondary Osteoporosis: 1. Type 1 Diabetes: no 2. Hyperthyroidism: no 3. Menopause before 45: no 4. Malnutrition: no 5. Chronic liver disease: no Rheumatoid Arthritis: no Current Tobacco Use: no RISK FACTORS HISTORY OF: Surgery to Spine/Hip(right/left)/Wrist (right/left): no EXAM MEASUREMENTS: Bone mineral densitometry was performed using the [employer] System. Bone mineral density as measured about the Lumbar spine is: ----- L1-L4(G/cm2): 0.944 T Score Values are as follows: ----- L1: -2.1 ----- L2: -2.5 ----- L3: -1.6 ----- L4: -2.0 ----- L1-L4: -2.0 Z Score Values are as follows: ----- L1: -0.8 ----- L2: -1.2 ----- L3: -0.3 ----- L4: -0.7 ----- L1-L4: -0.7 Bone mineral density has: decreased -3.0 % since study of: 11.21.2021 Bone mineral density about the R hip (g/cm2): 0.843 Bone mineral density about the L hip (g/cm2): 0.875 T Score values are as follows: -----R Neck: -1.6 -----L Neck: -1.7 -----R Total: -1.3 -----L Total: -1.1 Z Score values are as follows: -----R Neck: 0.1 -----L Neck: 0.0 -----R Total: 0.1 -----L Total: 0.4 Bone mineral density has: increased 4.8 % since study of: 4.13.2021 FRAX%s: The graph provided illustrates a 16.9% chance for a major osteoporotic fx and a 3.3% chance f or the hips probability for fx in 10 years time. IMPRESSION: Osteopenia (T Score between -2.5 and -1). There is slightly increased risk of fracture and the patient may be considered for treatment. Re-Screen 2-5 years. NOTE: T-SCORE=SD OF THE YOUNG ADULT MEAN.
== END | disposition home or self-care (01) ==
LOC: RADBDWWP 08:38
PROVIDERS: ATTEND Internal Medicine Hematology & Oncology
DX: C50.411 Malignant neoplasm of upper-outer quadrant of right female breast (principal); M85.89 Other specified disorders of bone density and structure, multiple sites; R51.9 Headache, unspecified; J45.998 Other asthma; Z17.0 Estrogen receptor positive status [ER+]
CPT/HCPCS: 77080

== ENCOUNTER → 2024-03-10 | Outpatient (CLI) | payer MEDICARE ==
[2024-03-10 12:39] LABS: African American GFR (CKD) >90 (>60 ml/min/1.73 sqM); Blood Urea Nitrogen 14 mg/dL (7-17); Non-African American GFR(CKD) 79 (>60 ml/min/1.73 sqM)
--- NOTE | 2024-03-10 15:23 | CT ---
EXAMINATION TYPE: CT abdomen pelvis w con DATE OF EXAM: 03/10/2024 COMPARISON: 12/13/2022 HISTORY: 73-year-old female C50.411, V85.44 abdominal pain, hx of breast and vulva ca TECHNIQUE: Contiguous axial scanning of the abdomen and pelvis following administration of 100 ml Iso checo 300 IV contrast. Delayed images through the kidneys and coronal/sagittal reconstructions perform ed. CT DLP: 1300 mGycm Automated exposure control for dose reduction was used. FINDINGS: Heart borderline in size without pericardial effusion. Mild emphysematous changes in the visualized l ower lungs. No pleural effusion. Small hiatal hernia. Mildly diminished attenuation of the hepatic parenchyma without focal lesion. Portal venous system is patent. No biliary ductal dilatation. Gallbladder, adrenal glands, kidneys, spleen with small inferior splenule, and pancreas within normal limits. No dilated small bowel, free fluid, or free air. No mesenteric or retroperitoneal lymphadenopathy. Oral contrast progressed to the distal sigmoid colon. No significant stool burden. There is sigmoid d iverticulosis. No pericolonic inflammatory change. Bladder partially distended. Uterus is surgically absent. Ovaries not visualized. There is pelvic marisol or relaxation. No abnormal fluid collection in the pelvis or pelvic adenopathy is seen. Bones: There is a new vertical band of sclerosis involving the right sacral al. Mild degenerative telly nges of the hips. Moderate facet arthropathy mid to lower lumbar spine. Grade 1 anterolisthesis at L4-L5. IMPRESSION: 1. NO SUSPICIOUS LYMPHADENOPATHY OR MASS TO SUGGEST RECURRENT/METASTATIC DISEASE IN THE ABDOMEN OR PE LVIS. 2. SOME EMPHYSEMA IN THE VISUALIZED LOWER LUNGS, SMALL HIATAL HERNIA, AT LEAST MILD HEPATIC STEATOSIS , AND SIGMOID DIVERTICULOSIS. 3. A NEW VERTICAL BAND OF SCLEROSIS RIGHT SACRAL ALA. CORRELATE FOR AGE-INDETERMINATE INSUFFICIENCY F RACTURE. THOUGH NEW FROM 12/13/2022. 4. PELVIC FLOOR RELAXATION.
== END | disposition home or self-care (01) ==
LOC: RADCTMAIN 11:50
PROVIDERS: ATTEND Obstetrics & Gynecology
DX: C50.411 Malignant neoplasm of upper-outer quadrant of right female breast (principal); C51.9 Malignant neoplasm of vulva, unspecified; J43.9 Emphysema, unspecified; K44.9 Diaphragmatic hernia without obstruction or gangrene; K76.0 Fatty (change of) liver, not elsewhere classified; K57.30 Diverticulosis of large intestine without perforation or abscess without bleeding; Z85.44 Personal history of malignant neoplasm of other female genital organs; Z79.811 Long term (current) use of aromatase inhibitors; Z98.890 Other specified postprocedural states; Z92.3 Personal history of irradiation
CPT/HCPCS: 82565; 84520; 74177; 36415; Q9967

== ENCOUNTER → 2024-06-03 | Outpatient (CLI) | payer MEDICARE ==
--- NOTE | 2024-06-03 09:43 | MM ---
Reason for Exam: Hx of breast cancer, conservation therapy. Last screening mammogram was performed 12 month(s) ago. Patient History: Menarche at age 15. First Full-Term at age 21. Left ovary removed at age 39. Right ovary removed at age 39. Hysterectomy at age 39. Postmenopausal. Breast cancer, right, age 71. Other cancer, age 71. Previous chest radiation therapy at age 71. Patient used Estrogen for 4 years. 05/06/2022, Benign US biopsy breast VAD RT on the right side. 09/04/2021, Bilateral Lumpectomy. 09/04/2021, Bilateral Lumpectomy. Benign Excisional Biopsy on the right side. 09/04/2021, Malignant Core Biopsy on the right side. 09/04/2021, Malignant Core Biopsy on the left side. 08/22/2021, Benign Core Biopsy on the left side. 05/23/2021, Malignant Core Biopsy on the right side. Chemotherapy. 2020, Radiation Therapy on the right side. Prior Study Comparison: 09/29/2015 Screening Mammogram, [facility]. 04/03/2018 Screening Mammogram, [facility]. 04/23/2018 Left Diagnostic Ultrasound, [facility]. 04/25/2021 Bilateral Diagnostic Mammogram, [facility]. 05/09/2021 Right Diagnostic Mammogram, [facility]. 05/09/2021 Right Diagnostic Ultrasound, [facility]. 05/23/2021 Right Diagnostic Mammogram, [facility]. 06/22/2021 Right Diagnostic Ultrasound, [facility]. 06/22/2021 Right Diagnostic Mammogram, [facility]. 07/23/2021 Left Diagnostic Ultrasound, [facility]. 07/27/2021 Left Diagnostic Ultrasound, [facility]. 08/22/2021 Left Diagnostic Mammogram, [facility]. 04/26/2022 Bilateral MG 3D diag mammo w/cad QUIN, [facility]. 05/02/2022 Right US breast axilla RT, [facility]. 05/06/2022 Right MG diagnostic mammo RT wo CAD, [facility]. 05/23/2023 Bilateral MG 3D diag mammo w/cad QUIN, [facility]. Tissue Density: There are scattered areas of fibroglandular density. Findings: Analyzed By CAD. Postoperative distortion seen bilaterally. Radiation therapy changes right breast. Dystrophic calcifications right breast without suspicious calcifications seen at this time. No new masses or new areas of distortion seen. Overall Assessment: Benign, BI-RAD 2 Management: Diagnostic Mammogram of both breasts in 1 year. . Results were given to the patient verbally at the time of exam. Patient should continue monthly self-breast exams. A clinical breast exam by your physician is recommended on an annual basis. This exam should not preclude additional follow-up of suspicious palpable abnormalities. Note on Marisela scores and lifetime risk: 1. A Marisela score greater than 3% is considered moderate risk. If this is the case, consider specialist referral to assess eligibility for a risk reducing agent. 2. If overall lifetime risk for the development of breast cancer is 20% or higher, the patient may qualify for future screening with alternating mammogram and breast MRI. [facility], , 06/03/2024 9:41 AM. Electronically signed and approved by: Dani Parker M.D. Radiologis
== END | disposition home or self-care (01) ==
LOC: RADMAMWWP 09:13
PROVIDERS: ATTEND Family Medicine
CPT/HCPCS: 77062; 77066